=== PATIENT | female | born 1990 | race Caucasian/White ===

== ENCOUNTER 2016-06-08 09:22 | Outpatient (CLI) | payer OTHER ==
[2016-06-08 10:05] LABS: APPEARANCE,URINE SLIGHTLY-CLOUDY; BILIRUBIN,URINE NEGATIVE (NEGATIVE); GLUCOSE, URINE NEGATIVE (NEGATIVE); KETONES,URINE NEGATIVE (NEGATIVE); LEUKOCYTE ESTERASE,URINE SMALL (NEGATIVE); NITRITE,URINE NEGATIVE (NEGATIVE); PROTEIN,URINE NEGATIVE (NEGATIVE); URINE SPECIFIC GRAVITY 1.011; UROBILINOGEN,URINE NEGATIVE mg/dL (<2.0)
[2016-06-08 10:20] LABS: URINE BARBITURATES SCREEN NEGATIVE; URINE METHADONE SCREEN NEGATIVE; URINE OPIATES LOW NEGATIVE; URINE PHENCYCLIDINE SCREEN NEGATIVE
--- NOTE | 2016-06-08 10:46 | Antepartum Discharge Summary ---
Antepartum DC Datetime Report Generated by CPN: 06/08/2016 10:45 DIET/ACTIVITY/RESTRICTIONS Diet: Regular (06/08/2016 10:14:Merari Alex, RN) Activity: Normal Activity (06/08/2016 10:14:Merari Alex, RN) TEACHING/INSTRUCTIONS/REFERRALS Instructions Given To: Patient (06/08/2016 10:14:Merari Alex, RN) Instructions Understood: Patient Verbalized Understanding; Support Person Verbalized Understanding (06/08/2016 10:14:Merari Alex, RN) Referrals: None (06/08/2016 10:14:Merari Johnson RN) Educational Materials- Other: kick counts and early labor signs (06/08/2016 10:14:Merari Johnson RN) DISCHARGE INFORMATION Discharge Date/Time: 06/08/2016 10:14 (06/08/2016 10:14:Merari Johnson RN) Discharged To: Home (06/08/2016 10:14:Merari Johnson RN) Discharge Provider Name: Dr. Pérez (06/08/2016 10:14:Merari Johnson RN) Discharge Method: Ambulatory (06/08/2016 10:14:Merari Johnson RN) Condition: Stable (06/08/2016 10:14:Merari Johnson RN) FOLLOW UP INFORMATION Follow Up With: [facility] (06/08/2016 10:14:Merari Johnson RN) Follow Up On: As Scheduled (06/08/2016 10:14:Merari Johnson RN) Follow Up Phone Number: [facility] - (06/08/2016 10:14:Merari Johnson RN)
--- NOTE | 2016-06-08 10:46 | L&D Flow Sheet ---
LD Flowsheet Datetime Report Generated by CPN: 06/08/2016 10:45 Datetime: 06/08/2016 10:09 Communication Comments: Monitors removed. Patient ambulating off floor in stable condition (Merari Alex, RN) Datetime: 06/08/2016 10:08 Vital Signs NBP Sys/Joanna/Mean (mmHg): 99 (QS system process) : 58 (QS system process) : 71 (QS system process) Pulse: 96 (QS system process) Communication Notification Reason: Uterine Activity (Merari Alex, RN) Communication Notification Reason: Status Update; Status; Labor Status; Membrane Status; Pain (Merari Johnson RN) Communication Comments: Dr. Pérez on unit reviewing strip. Orders received to D/C patient home. (Merari Alex, RN) Datetime: 06/08/2016 10:00 Uterine Activity Monitor Mode: External; Palpation (Merari Alex, RN) Frequency (min): 0 (Merari Alex, RN) Resting Tone (Palpate): Relaxed (Merari Alex, RN) Contraction Comments: patient reports no contractions at this time (Merari Alex, RN) Assessment A Monitor Mode: External US (Merari Alex, RN) FHR Baseline Rate : 145 (Merari Alex, RN) Variability: Moderate 6-25 bpm (Merari Alex, RN) Accelerations: 15X15 (Merari Alex, RN) Decelerations: None (Merari Alex, RN) Datetime: 06/08/2016 09:56 Bedside Blood Glucose: 83 (QS system process) Datetime: 06/08/2016 09:47 Pain Pain Scale: 0 (Merari Alex, RN) Pain Presence: None/Denies (Merari Alex, RN) Pain Type: N/A (Merari Alex, RN) Vaginal Exam Membrane Status: Intact (Merari Alex, RN) Vaginal Bleeding: None (Merari Alex, RN) Maternal Assessment Level of Consciousness: Fully Conscious (Merari Alex, RN) DTR's/Clonus: DTRs 1+; No Clonus (Merari Alex, RN) Headache: Denies (Merari Alex, RN) Breath Sounds, Left: Clear and Equal (Merari Alex, RN) Breath Sounds, Right: Clear and Equal (Merari Alex, RN) Nausea/Vomiting: Denies (Merari Alxe, RN) RUQ Epigastric Pain: Denies (Merari Alex, RN) Datetime: 06/08/2016 09:44 Vital Signs NBP Sys/Joanna/Mean (mmHg): 95 (QS system process) : 59 (QS system process) : 70 (QS system process) Pulse: 94 (QS system process)
--- NOTE | 2016-06-08 10:46 | L&D General Admission ---
General Admit Datetime Report Generated by CPN: 06/08/2016 10:45 INFORMATION Patient Age: 25 (08/28/2015 08:42:QS system process) EDC: 06/20/2016 00:00 (06/08/2016 09:27:Merari Johnson RN) : 4 (06/08/2016 09:27:Merari Johnson RN) Para: 2 (06/08/2016 09:27:Merari Johnson RN) Term: 2 (06/08/2016 09:27:Merari Johnson RN) : 0 (06/08/2016 09:27:Merari Johnson RN) Spontaneous Abortions: 1 (06/08/2016 09:27:Merari Johnson RN) Induced Abortions: 0 (06/08/2016 09:27:Merari Johnson RN) Livin (06/08/2016 09:27:Merari Johnson RN) Cesareans: 0 (06/08/2016 09:27:Merari Johnson RN) VBACs: 0 (06/08/2016 09:27:Merari Johnson RN) Ectopic: 0 (06/08/2016 09:27:Merari Johnson RN) Multiple Births: 0 (06/08/2016 09:27:Merari Johnson RN) Baby, Number in Womb: 1 (06/08/2016 09:27:Merari Johnson RN) CARE [facility] (06/08/2016 09:27:Merari Johnson RN) Adequate Care: Yes (06/08/2016 09:27:Merari Johnson RN) ALLERGIES Medication Allergy: No (06/08/2016 09:27:Merari Johnson RN) Medication Allergies: No Known Allergies (06/18/2011) (08/28/2015 08:42:QS system process) Latex Allergy: No Latex Allergies (06/08/2016 09:27:Merari Johnson RN) Food Allergies: none (06/08/2016 09:27:Merari Johnson RN) Environmental Allergies: none (06/08/2016 09:27:Merari Johnson RN) COMMUNICATION Primary Language: Burkinan (06/08/2016 09:27:Merari Johnson RN) Medical Tx Preferred Language: Burkinan (06/08/2016 09:27:Merari Johnson RN) Communication Barrier(s): None (06/08/2016 09:27:Merari Johnson RN) DEMOGRAPHICS Address: [address] [place] [id number] (06/08/2016 09:23:QS system process) Address: [address] [place] [id number] (08/29/2015 07:57:QS system process) Address: [address] [place] [address] (08/28/2015 08:42:QS system process) Zipcode: [address] (06/08/2016 09:23:QS system process) Zipcode: [phone] (08/29/2015 07:57:QS system process) Zipcode: [address] (08/28/2015 08:42:QS system process) Home (08/29/2015 07:57:QS system process) Home (08/28/2015 08:42:QS system process) Work (06/08/2016 09:23:QS system process) Work (08/29/2015 07:57:QS system process) Work (08/28/2015 08:42:QS system process) SSN: [id number] (08/28/2015 08:42:QS system process) Next of Kin Name: ROGER BARNETT (08/29/2015 07:57:QS system process) Next of Kin Name: BRYANNA ALLEN (08/28/2015 08:42:QS system process) Next of Kin (08/29/2015 07:57:QS system process) Next of Kin (08/28/2015 08:42:QS system process) Next of Kin Relationship: OR (08/28/2015 08:42:QS system process) Date of : 1990 (08/28/2015 08:42:QS system process) Marital Status: Single (08/28/2015 08:42:QS system process) Sex: Female (08/28/2015 08:42:QS system process) Race: (08/28/2015 08:42:QS system process) Ethnicity: Non- or (08/28/2015 08:42:QS system process) Hinduism: Other (08/28/2015 08:42:QS system process) DRUG AND ALCOHOL USE Alcohol: No (06/08/2016 09:27:Merari Alex, RN) Cigarettes: Never Smoker. [id number] (06/08/2016 09:27:Merari Johnson RN) Marijuana: No (06/08/2016 09:27:Merari Johnson RN) Cocaine: No (06/08/2016 09:27:Merari Jhonson RN) Other Illicit Drugs: No (06/08/2016 09:27:Merari Johnson RN) VACCINE HISTORY Tetanus Vaccine: Yes (06/08/2016 09:27:Merari Johnson RN) Tdap Vaccine: Yes (06/08/2016 09:27:Merari Johnson RN) Hog Killer: [facility] (06/08/2016 09:27:Merari Johnson RN) Feeding Preference: Breast (06/08/2016 09:27:Merari Johnson RN) Benefit of Breast Feed Discussed: Yes (06/08/2016 09:27:Merari Johnson RN) Circumcision: N/A (06/08/2016 09:27:Merari Johnson RN) Tubal Ligation: No (06/08/2016 09:27:Merari Johnson RN) Tubal Authorization Signed: N/A (06/08/2016 09:27:Merari Johnson RN) Consent: N/A (06/08/2016 09:27:Merari Johnson RN) Consent Signed: N/A (06/08/2016 09:27:Merari Johnson RN) Pain Management Plans: Epidural (06/08/2016 09:27:Merari Johnson RN) Support Person: Rony Chance (06/08/2016 09:27:Merari Johnson RN) Support Person Relationship: (06/08/2016 09:27:Merari Johnson RN) Cultural/Spritual Practice: [place] (06/08/2016 09:27:Merari Johnson RN) Spir/Cult Dietary Needs: No (06/08/2016 09:27:Merari Johnson RN) LIVING SITUATION/DISCHARGE PLAN Living Arrangements: House (06/08/2016 09:27:Merari Johnson RN) Adequate Access to:: Electric; Heat; Refrigeration; Plumbing/Running water; Phone; Transportation (06/08/2016 09:27:Merari Johnson RN) WIC Program: [place] (06/08/2016 09:27:Merari Johnson RN) Discharge Youth Leader Person: Rony Chance (06/08/2016 09:27:Merari Johnson RN) Person to Help after Discharge: Rony Chance (06/08/2016 09:27:Merari Johnson RN) Currently Using Commun Resources: [place] (06/08/2016 09:27:Merari Johnson RN) Car Seat for Discharge: Yes (06/08/2016 09:27:Merari Johnson RN) Adoption Requested: No (06/08/2016 09:27:Merari Johnson RN) Pt Contact w/ Post : N/A (06/08/2016 09:27:Merari Johnson RN) LABS Blood Type: A Positive (06/08/2016 09:27:Merari Johnson RN) Hemoglobin: 14.2 (08/29/2015 08:07:QS system process) Hematocrit: 42.7 (08/29/2015 08:07:QS system process) MCV: 87 (08/29/2015 08:07:QS system process) Group Beta Strep: negative (06/08/2016 09:27:Merari Johnson RN) Gonorrhea: Negative (06/08/2016 09:27:Merari Johnson RN) Chlamydia: Negative (Annotations: Data stored by CPN on behalf of user) (06/08/2016 09:27:Merari Johnson RN) RPR/VDRL: Nonreactive (06/08/2016 09:27:Merari Johnson RN) Hepatitis B: Negative (06/08/2016 09:27:Merari Johnson RN) Rubella: Immune (06/08/2016 09:27:Merari Johnson RN)
--- NOTE | 2016-06-08 10:46 | L&D Current Admission ---
Current Admit Datetime Report Generated by CPN: 06/08/2016 10:45 ADMISSION INFORMATION Chief Complaint: Decreased Movement (06/08/2016 09:47:Merari Johnson, DORYS)
--- NOTE | 2016-06-08 10:46 | L&D Admission Assessment ---
LD ADM ASMT Datetime Report Generated by CPN: 06/08/2016 10:45 PATIENT ASSESSMENT Assessment Type: Triage (06/08/2016 09:47:Merari Alex, RN) PAIN Pain Scale: 0 (06/08/2016 09:47:Merari Alex, RN) Pain Presence: None/Denies (06/08/2016 09:47:Merari Alex, RN) Pain Type: N/A (06/08/2016 09:47:Merari Alex, RN) CONTRACTIONS Frequency (min): 0 (06/08/2016 10:00:Merari Alex, RN) Resting Tone Esto: Relaxed (06/08/2016 10:00:Merari Alex, RN) Contraction Comments: patient reports no contractions at this time (06/08/2016 10:00:Merari Alex, RN) VAGINAL EXAM Membranes Status: Intact (06/08/2016 09:47:Merari Alex, RN) NEURO Level of Consciousness: Fully Conscious (06/08/2016 09:47:Merari Alex, RN) DTR's/Clonus: DTRs 1+; No Clonus (06/08/2016 09:47:Merari Johnson RN) Headache: Denies (06/08/2016 09:47:Merari Johnson RN) Dizziness: Yes (Annotations: a few dizzy spells. Went away after a few minutes) (06/08/2016 09:47:Merari Johnson RN) Blurred Vision: No (06/08/2016 09:47:Merari Johnson RN) Extremity Numbness/Tingling : None (06/08/2016 09:47:Merari Johnson RN) Extremity Movement: Full Range of Motion (06/08/2016 09:47:Merari Johnson RN) CARDIOVASCULAR Heart Rhythm: Regular (06/08/2016 09:47:Merari Johnson RN) Nailbeds: [place] (06/08/2016 09:47:Merari Johnson RN) Capillary Refill: Less than 3 Seconds (06/08/2016 09:47:Merari Johnson RN) Lower Extremities Edema: None (06/08/2016 09:47:Merari Johnson RN) Lower Extremities Edema Degree: None (06/08/2016 09:47:Merari Johnson RN) Upper Extremities Edema: None (06/08/2016 09:47:Merari Johnson RN) Upper Extremities Edema Degree: None (06/08/2016 09:47:Merari Johnson RN) Facial Edema: None (06/08/2016 09:47:Merari Johnson RN) Pina's Sign Left Leg: Negative (06/08/2016 09:47:Merari Johnson RN) Pina's Sign Right Leg: Negative (06/08/2016 09:47:Merari Johnson RN) DVT RISK ASSESSMENT DVT Risk Age: Age less than 41 years (06/08/2016 09:47:Merari Johnson RN) DVT Risk BMI: BMI<31 (06/08/2016 09:47:Merari Johnson RN) DVT Risk Surgery: Gall bladder removed 2015 (06/08/2016 09:47:Merari Johnson RN) DVT Risk Other: Women Only- or (<1 month) (06/08/2016 09:47:Merari Johnson RN) RESPIRATORY Respiratory Effort: Unlabored; Regular Rhythm; Equal Expansion (06/08/2016 09:47:Merari Johnson RN) Breath Sounds, Left: Clear and Equal (06/08/2016 09:47:Merari Johnson RN) Breath Sounds, Right: Clear and Equal (06/08/2016 09:47:Merari Johnson RN) Cough Productivity: None (06/08/2016 09:47:Merari Johnson RN) GASTROINTESTINAL Nausea/Vomiting: Denies (06/08/2016 09:47:Merari Johnson RN) Bowel Sounds: Normoactive (06/08/2016 09:47:Merari Johnson RN) RUQ Epigastric Pain: Denies (06/08/2016 09:47:Merari Johnson RN) Bowel Patterns: Diarrhea (06/08/2016 09:47:Merari Johnson RN) Hemorrhoids: None (06/08/2016 09:47:Merari Johnson RN) Diet Type: Regular diet (06/08/2016 09:47:Merari Johnson RN) Last Meal: 06/08/2016 07:00 (06/08/2016 09:47:Merari Johnson RN) GENITOURINARY Bladder: Nondistended (06/08/2016 09:47:Merari Johnson RN) Frequency of Urination: No (06/08/2016 09:47:Merari Johnson RN) Urination Burning: No (06/08/2016 09:47:Merari Johnson RN) CVA Tenderness: No (06/08/2016 09:47:Merari Johnson RN) Vaginal Bleeding: None (06/08/2016 09:47:Merari Johnson RN) Vaginal Discharge Amount: Small (06/08/2016 09:47:Merari Johnson RN) Vaginal Discharge Color: White (06/08/2016 09:47:Merari Johnson RN) Vaginal Discharge Odor: Non-Odorous (06/08/2016 09:47:Merari Johnson RN) Vaginal Discharge Character: Thin (06/08/2016 09:47:Merari Johnson RN) INTEGUMENTARY Skin Color: Normal for Race (06/08/2016 09:47:Merari Johnson RN) Skin Temperature: Warm (06/08/2016 09:47:Merari Johnson RN) Skin Moisture: Dry (06/08/2016 09:47:Merari Johnson RN) JOY SKIN ASSESSMENT Joy Scale Sensory Perception: No Impairment- Responds to verbal commands. Has no sensory deficit which would limit ability to feel or voice pain or discomfort (06/08/2016 09:47:Merari Johnson RN) Joy Scale Moisture: Rarely Moist- Skin is usually dry. Linen only requires changing at routine intervals (06/08/2016 09:47:Merari Johnson RN) Joy Scale Activity: Walks Frequently- Walks outside the room at least twice a day and inside room at least every 2 hours during the day. (06/08/2016 09:47:Merari Johnson RN) Joy Scale Mobility: No Limitations- Makes major and frequent changes in position without assistance (06/08/2016 09:47:Merari Johnson RN) Joy Scale Nutrition: Adequate- Eats over half of most meals. Eats a total of 4 servings of protein (meat, dairy products) each day. Occasionally will refuse a meal but will usually take a supplement if offered OR is on a tube feeding or TPN regimen which probably meets most of nutritional needs (06/08/2016 09:47:Merari Johnson RN) Joy Scale Friction and Shear: No Apparent Problem- Moves in bed and in chair independently and has sufficient muscle strength to lift up completely during move. Maintains good position in bed or chair at all times (06/08/2016 09:47:Merari Johnson RN) Joy Scale Total: 22 (06/08/2016 09:47:QS system process) Joy Scale Risk: No Risk of Pressure Ulcer Noted at this Time (06/08/2016 09:47:QS system process) SUPPORT Family Support: Significant Other supportive, at bedside frequently (06/08/2016 09:47:Merari Johnson RN) Emotional State: Calm/Relaxed (06/08/2016 09:47:Merari Johnson RN) SAFETY Call [place] Within Reach: Yes (06/08/2016 09:47:Merari Johnson RN) Side Rails Up: Yes (06/08/2016 09:47:Merari Johnson RN) Bed Wheels Locked: Yes (06/08/2016 09:47:Merari Johnson RN) Arm Bands Present: Yes (06/08/2016 09:47:Merari Johnson RN) Isolation: [place] (06/08/2016 09:47:Merari Johnson RN) FALL SCREEN Fall Risk History of Falling: (0) No (06/08/2016 09:47:Merari Johnson RN) Fall Risk Secondary Diagnosis: (0) No (06/08/2016 09:47:Merari Johnson RN) Fall Risk Ambulatory Aid: (0) None/Bedrest/Wheelchair/Nurse Assist (06/08/2016 09:47:Merari Johnson RN) Fall Risk IV Therapy: (0) No (06/08/2016 09:47:Merari Johnson RN) Fall Risk Gait: (0) Normal/Bedrest/Immobile (06/08/2016 09:47:Merari Johnson RN) Fall Risk Mental Status: (0) Oriented to Own Ability (06/08/2016 09:47:Merari Johnson RN) Fall Risk Score: 0 (06/08/2016 09:47:QS system process) Fall Risk Score Definition: No Risk: No action required (06/08/2016 09:47:QS system process) RECENT TRAVEL/INFECTIOUS DISEASE Recent Exp Communicable Disease: No (06/08/2016 09:47:Merari Johnson RN) Cough or Fever: No (06/08/2016 09:47:Merari Johnson RN) Foreign Travel Past 10 Days: No (06/08/2016 09:47:Merari Johnson RN) Open Wounds or Sores: No (06/08/2016 09:47:Merari Johnson RN) Prior Antibiotic Resistance Tx: No (06/08/2016 09:47:Merari Johnson RN) Cultures Obtained: Not Applicable (06/08/2016 09:47:Merari Johnson RN) Isolation Initiated: No (06/08/2016 09:47:Merari Johnson RN) Pt/Family Education: Not Applicable (06/08/2016 09:47:Merari Johnson RN) BABY A FHR Baseline Rate (bpm) Baby A: 145 (06/08/2016 10:00:Merari Johnson RN) Variability Baby A: Moderate 6-25 bpm (06/08/2016 10:00:Merari Johnson RN) Accelerations Baby A: 15X15 (06/08/2016 10:00:Merari Johnson RN) Decelerations Baby A: None (06/08/2016 10:00:Merari Johnson RN)
--- NOTE | 2016-06-08 10:46 | L&D Discharge Summary ---
OB Discharge Summary Datetime Report Generated by CPN: 06/08/2016 10:45 DISCHARGE DIAGNOSIS Diagnosis/Symptoms: Decreased Movement Number of Babies in Womb: 1 Parity: 2 DIET/ACTIVITY/RESTRICTIONS Diet: Regular Activity: Normal Activity TEACHING/INSTRUCTIONS/REFERRALS Instructions Given To: Patient Instructions Understood: Patient Verbalized Understanding; Support Person Verbalized Understanding Referrals: None Educational Materials- Other: kick counts and early labor signs DISCHARGE INFORMATION Discharge Date/Time: 06/08/2016 10:14 Discharged To: Home Discharge Provider Name: Dr. Beto Discharge Method: Ambulatory Condition: Stable FOLLOW UP INFORMATION Follow Up With: [facility] Follow Up On: As Scheduled Follow Up Phone Number: [facility] -
== END 2016-06-08 10:10 | disposition home or self-care (01) ==
LOC: LC 09:22
PROVIDERS: ATTEND Obstetrics & Gynecology
PROC: 4A1HXCZ Monitoring of Products of Conception, Cardiac Rate, External Approach (ICD-10-PCS; principal; 2016-06-08)
DX: O36.8130 Decreased fetal movements, third trimester, not applicable or unspecified (principal); Z3A.38 38 weeks gestation of pregnancy
CPT/HCPCS: 59025; 80307; 81005; 82962

== ENCOUNTER 2016-06-20 18:00 | Inpatient (IN) | payer OTHER ==
[2016-06-20] MEDS ORDERED: RINGERS SOLUTION,LACTATED 300 ML IV ONE (18:19)
[2016-06-20] MEDS ORDERED: DINOPROSTONE 10 MG VAGINAL INSERT.SR PV PRN (18:19)
[2016-06-20 18:49] LABS: ABSOLUTE BASOPHILS # (AUTO) 0.1 10^3/uL (0.0-0.2); ABSOLUTE EOSINOPHILS # (AUTO) 0.1 10^3/uL (0.0-0.6); ABSOLUTE LYMPHOCYTES (AUTO) 2.5 10^3/uL (0.5-4.7); ABSOLUTE MONOCYTES (AUTO) 0.9 10^3/uL (0.1-1.4); ABSOLUTE NEUT (AUTO) 10.3 10^3/uL (1.7-8.2); BASOPHILS % (AUTO) 0.4 % (0-2); EOSINOPHILS % (AUTO) 0.6 % (0-6); HEMATOCRIT 35.4 % (36.0-47.0); HEMOGLOBIN 12.2 g/dL (12.0-15.5); HGB HCT DIFFERENCE 1.2; LYMPHOCYTES % (AUTO) 17.9 % (13-45); MEAN CORPUSCULAR HEMOGLOBIN 29.2 pg (27.0-33.4); MEAN CORPUSCULAR HGB CONC 34.3 g/dL (32.0-36.0); MEAN CORPUSCULAR VOLUME 85 fl (80-97); MONOCYTES % (AUTO) 6.2 % (3-13); RED BLOOD COUNT 4.16 10^6/uL (3.72-5.28); RED CELL DISTRIBUTION WIDTH 13.9 % (11.5-14.0); SEGMENTED NEUTROPHILS % (AUTO) 74.9 % (42-78); WHITE BLOOD COUNT 13.7 10^3/uL (4.0-10.5)
[2016-06-20 19:10] LABS: APPEARANCE,URINE SLIGHTLY-CLOUDY; BILIRUBIN,URINE NEGATIVE (NEGATIVE); GLUCOSE, URINE NEGATIVE (NEGATIVE); KETONES,URINE NEGATIVE (NEGATIVE); LEUKOCYTE ESTERASE,URINE SMALL (NEGATIVE); NITRITE,URINE NEGATIVE (NEGATIVE); PROTEIN,URINE NEGATIVE (NEGATIVE); URINE SPECIFIC GRAVITY 1.011; UROBILINOGEN,URINE NEGATIVE mg/dL (<2.0)
[2016-06-20 19:26] LABS: URINE BARBITURATES SCREEN NEGATIVE; URINE METHADONE SCREEN NEGATIVE; URINE OPIATES LOW NEGATIVE; URINE PHENCYCLIDINE SCREEN NEGATIVE
--- NOTE | 2016-06-20 20:00 | L&D Flow Sheet ---
LD Flowsheet Datetime Report Generated by CPN: 06/20/2016 20:00 Datetime: 06/20/2016 19:20 Communication Comments: Bedside report from D [employer] [facility], care assumed (Xi Dustin, RN) Datetime: 06/20/2016 19:00 Uterine Activity Monitor Mode: External; Palpation (Tani Silver, RN) Frequency (min): irregular (Tani Silver, RN) Quality: Mild (Tani Silver, RN) Duration Criteria: Less than Two 120 Second Contractions (Tani Silver, RN) Pattern: Normal: <= 5 Contractions in 10 Minutes (Tani Silver, RN) Resting Tone (Palpate): Relaxed (Tani Silver, RN) Assessment A Monitor Mode: External US (Tani Silver, RN) FHR Baseline Rate : 135 (Tani Silver, RN) Variability: Moderate 6-25 bpm (Tani Silver, RN) Accelerations: 15X15 (Tani Silver, RN) Decelerations: None (Tani Silver, RN) Communication Communication: RN at Bedside; RN Reviewed Strip (Tani Silver, RN) Datetime: 06/20/2016 18:27 Vital Signs NBP Sys/Joanna/Mean (mmHg): 123 (QS system process) : 64 (QS system process) : 86 (QS system process) Pulse: 85 (QS system process)
[2016-06-20] MEDS: RINGERS SOLUTION,LACTATED 1,000 ML IV PRN ×2 (20:32→20:33)
[2016-06-21] MEDS ORDERED: DINOPROSTONE 10 MG VAGINAL INSERT.SR ONE (02:11)
--- NOTE | 2016-06-21 08:00 | L&D Flow Sheet ---
LD Flowsheet Datetime Report Generated by CPN: 06/21/2016 08:00 Datetime: 06/21/2016 07:52 Level of Consciousness: Fully Conscious (Aminah Pérez, RN) DTR's/Clonus: DTRs 2+; No Clonus (Aminah Pérez, RN) Headache: Denies (Aminah Pérez, RN) Breath Sounds, Left: Clear and Equal (Aminah Pérez, RN) Breath Sounds, Right: Clear and Equal (Aminah Pérez, RN) Nausea/Vomiting: Denies (Aminah Pérez, RN) RUQ Epigastric Pain: Denies (Aminah Pérez, RN) Datetime: 06/21/2016 07:30 Monitor Mode: External; Palpation (Aminah Beto, RN) Frequency (min): 3-6 (Aminah Beto, RN) Quality: Mild (Aminah Beto, RN) Duration (sec): 70-100 (Aminah Beto, RN) Duration Criteria: Less than Two 120 Second Contractions (Aminah Beto, RN) Pattern: Normal: <= 5 Contractions in 10 Minutes (Aminah Beto, RN) Resting Tone (Palpate): Relaxed (Aminah Beto, RN) Monitor Mode: External US (Aminah Beto, RN) FHR Baseline Rate : 135 (Aminah Beto, RN) FHR Baseline Changes: No Baseline Change (Aminah Beto, RN) Variability: Moderate 6-25 bpm (Aminah Beto, RN) Accelerations: 15X15 (Aminah Beto, RN) Decelerations: None (Aminah Beto, RN) Datetime: 06/21/2016 07:00 Monitor Mode: External (Claribel Juan F, RN) Frequency (min): occasional (Claribel Juan F, RN) Quality: Mild (Claribel Juan F, RN) Duration (sec): 90 (Claribel Juan F, RN) Pattern: Normal: <= 5 Contractions in 10 Minutes (Claribel Juan F, RN) Resting Tone (Palpate): Relaxed (Claribel Juan F, RN) Monitor Mode: External US (Claribel Juan F, RN) FHR Baseline Rate : 135 (Claribel Juan F, RN) FHR Baseline Changes: No Baseline Change (Claribel Juan F, RN) Variability: Moderate 6-25 bpm (Claribel Juan F, RN) Accelerations: 15X15 (Claribel Juan F, RN) Decelerations: None (Claribel Juan F, RN) Datetime: 06/21/2016 06:59 I/O Interventions: Up to BR (Claribel Juan F, RN) Datetime: 06/21/2016 06:30 Monitor Mode: External (Claribel Juan F, RN) Frequency (min): occasional (Claribel Juan F, RN) Quality: Mild (Claribel Juan F, RN) Duration (sec): 100 (Claribel Juan F, RN) Resting Tone (Palpate): Relaxed (Claribel Juan F, RN) Monitor Mode: External US (Claribel Juan F, RN) FHR Baseline Rate : 135 (Claribel Juan F, RN) FHR Baseline Changes: No Baseline Change (Claribel Juan F, RN) Variability: Moderate 6-25 bpm (Claribel Juan F, RN) Accelerations: 15X15 (Claribel Juan F, RN) Decelerations: None (Claribel Juan F, RN) Datetime: 06/21/2016 06:00 Monitor Mode: External (Xi Dustin, RN) Frequency (min): 3-6 (Xi Dustin, RN) Quality: Mild (Xi Dustin, RN) Duration (sec): 70-120 (Xi Dustin, RN) Resting Tone (Palpate): Relaxed (Xi Dustin, RN) Monitor Mode: External US (Xi Dustin, RN) FHR Baseline Rate : 140 (Xi Dustin, RN) Variability: Moderate 6-25 bpm (Xi Dustin, RN) Accelerations: 15X15 (Xi Dustin, RN) Decelerations: None (Xi Dustin, RN) Datetime: 06/21/2016 05:29 Monitor Mode: External (Claribel Juan F, RN) Frequency (min): X 1 (Claribel Juan F, RN) Quality: Mild (Claribel Juan F, RN) Duration (sec): 50 (Claribel Juan F, RN) Pattern: Normal: <= 5 Contractions in 10 Minutes (Claribel Juan F, RN) Resting Tone (Palpate): Relaxed (Claribel Juan F, RN) Monitor Mode: External US (Claribel Juan F, RN) FHR Baseline Rate : 140 (Clarible Juan F, RN) FHR Baseline Changes: No Baseline Change (Claribel Juan F, RN) Variability: Moderate 6-25 bpm (Claribel Juan F, RN) Accelerations: 15X15 (Claribel Juan F, RN) Decelerations: None (Claribel Juan F, RN) Datetime: 06/21/2016 05:00 Monitor Mode: External (Claribel Juan F, RN) Frequency (min): occasional (Claribel Juan F, RN) Pattern: Normal: <= 5 Contractions in 10 Minutes (Claribel Juan F, RN) Resting Tone (Palpate): Relaxed (Claribel Juan F, RN) Contraction Comments: irritability noted (Claribel Juan F, RN) Monitor Mode: External US (Claribel Juan F, RN) FHR Baseline Rate : 125 (Claribel Juan F, RN) FHR Baseline Changes: No Baseline Change (Claribel Juan F, RN) Variability: Moderate 6-25 bpm (Claribel Juan F, RN) Accelerations: 15X15 (Claribel Juan F, RN) Decelerations: None (Claribel Juan F, RN) Datetime: 06/21/2016 04:29 Monitor Mode: External (Claribel Juan F, RN) Frequency (min): occasional (Claribel Juan F, RN) Quality: Mild (Claribel Juan F, RN) Resting Tone (Palpate): Relaxed (Claribel Juan F, RN) Monitor Mode: External US (Claribel Juan F, RN) FHR Baseline Rate : 125 (Claribel Juan F, RN) FHR Baseline Changes: No Baseline Change (Claribel Juan F, RN) Variability: Moderate 6-25 bpm (Claribel Juan F, RN) Accelerations: 15X15 (Claribel Juan F, RN) Decelerations: None (Claribel Juan F, RN) Datetime: 06/21/2016 04:22 NBP Sys/Joanna/Mean (mmHg): 89 (QS system process) : 50 (QS system process) : 64 (QS system process) Pulse: 66 (QS system process) LaborFlag: Antepartum (QS system process) Datetime: 06/21/2016 04:00 Monitor Mode: External (Claribel Juan F, RN) Frequency (min): irregular (Claribel Juan F, RN) Quality: Mild (Claribel Juan F, RN) Duration (sec): 50-90 (Claribel Juan F, RN) Resting Tone (Palpate): Relaxed (Claribel Juan F, RN) Monitor Mode: External US (Claribel Juan F, RN) FHR Baseline Rate : 125 (Claribel Juan F, RN) FHR Baseline Changes: No Baseline Change (Claribel Juan F, RN) Variability: Moderate 6-25 bpm (Claribel Juan F, RN) Accelerations: 15X15 (Claribel Juan F, RN) Decelerations: None (Claribel Juan F, RN) Datetime: 06/21/2016 03:52 NBP Sys/Joanna/Mean (mmHg): 117 (QS system process) : 71 (QS system process) : 88 (QS system process) Pulse: 76 (QS system process) LaborFlag: Antepartum (QS system process) Datetime: 06/21/2016 03:30 Monitor Mode: External (Claribel Juan F, RN) Frequency (min): X1 (Claribel Juan F, RN) Quality: Mild (Claribel Juan F, RN) Duration (sec): 90 (Claribel Juan F, RN) Resting Tone (Palpate): Relaxed (Claribel Juan F, RN) Monitor Mode: External US (Claribel Juan F, RN) FHR Baseline Rate : 125 (Claribel Juan F, RN) FHR Baseline Changes: No Baseline Change (Claribel Juan F, RN) Variability: Moderate 6-25 bpm (Claribel Juan F, RN) Accelerations: 15X15 (Claribel Juan F, RN) Decelerations: None (Claribel Juan F, RN) Datetime: 06/21/2016 03:22 NBP Sys/Joanna/Mean (mmHg): 123 (QS system process) : 59 (QS system process) : 85 (QS system process) Pulse: 81 (QS system process) LaborFlag: Antepartum (QS system process) Datetime: 06/21/2016 03:00 Monitor Mode: External (Xi Dustin, RN) Frequency (min): x1 (Xi Dustin, RN) Quality: Mild (Xi Dustin, RN) Duration (sec): 90 (Xi Dustin, RN) Resting Tone (Palpate): Relaxed (Xi Dustin, RN) Monitor Mode: External US (Xi Dustin, RN) FHR Baseline Rate : 125 (Xi Dustin, RN) Variability: Moderate 6-25 bpm (Xi Dustin, RN) Accelerations: 15X15 (Xi Dustin, RN) Decelerations: None (Xi Dustin, RN) Datetime: 06/21/2016 02:53 NBP Sys/Joanna/Mean (mmHg): 122 (QS system process) : 60 (QS system process) : 85 (QS system process) Pulse: 81 (QS system process) LaborFlag: Antepartum (QS system process) Datetime: 06/21/2016 02:30 Monitor Mode: External (Ix Dustin, RN) Frequency (min): x2 (Xi Dustin, RN) Quality: Mild (Xi Dustin, RN) Duration (sec): 70-90 (Xi Dustin, RN) Resting Tone (Palpate): Relaxed (Xi Dustin, RN) Monitor Mode: External US (Xi Dustin, RN) FHR Baseline Rate : 130 (Xi Dustin, RN) Variability: Moderate 6-25 bpm (Xi Dustin, RN) Accelerations: 15X15 (Xi Dustin, RN) Decelerations: None (Xi Dustin, RN) Datetime: 06/21/2016 02:21 NBP Sys/Joanna/Mean (mmHg): 120 (QS system process) : 73 (QS system process) : 89 (QS system process) Pulse: 81 (QS system process) LaborFlag: Antepartum (QS system process) Datetime: 06/21/2016 02:17 Patient Care Comments: IVF reconnected and started at 125 ml/ hour (Claribel Rogel, RN) Datetime: 06/21/2016 02:15 Dilatation (cm): 1.0 (Claribel Rogel RN) Effacement (%): 0 (Claribel Rogel RN) Station: -2 (Claribel Rogel RN) Exam by: RON Pringle (Claribel Rogel RN) Vaginal Bleeding: None (Claribel Rogel RN) Cervix, Consistency: Soft (Claribel Rogel RN) Cervix, Position: Midposition (Claribel Rogel RN) Cervical Ripening Agents: Cervidil (Claribel Rogel RN) Datetime: 06/21/2016 02:10 I/O Interventions: Up to BR (Claribel Rogel, DORYS) Datetime: 06/21/2016 01:59 Frequency (min): 0 (Claribel Juan F, RN) Monitor Mode: External US (Claribel Juan F, RN) FHR Baseline Rate : 130 (Claribel Juan F, RN) FHR Baseline Changes: No Baseline Change (Claribel Juan F, RN) Variability: Moderate 6-25 bpm (Claribel Juan F, RN) Accelerations: 15X15 (Claribel Juan F, RN) Decelerations: None (Claribel Juan F, RN) Datetime: 06/21/2016 01:40 Stage of : Antepartum (Claribel Rogel, RN) Patient Care Comments: Monitors reapplied in anticipation of inserting cervidil. (Claribel Juan F, RN) Datetime: 06/20/2016 21:11 Monitor Mode: External (Xi Dustin, RN) Frequency (min): none (Xi Dustin, RN) Resting Tone (Palpate): Relaxed (Xi Dustin, RN) Monitor Mode: External US (Xi Dustin, RN) FHR Baseline Rate : 125 (Xi Dustin, RN) Variability: Moderate 6-25 bpm (Xi Dustin, RN) Accelerations: 15X15 (Xi Dustin, RN) Decelerations: None (Xi Dustin, RN) Comments: monitors removed, IV saline locked per orders from Dr Flores while pt awaits cervidil administration. Pt given instructions to ambulate 2nd floor if she wishes (Xi Dustin, RN) Datetime: 06/20/2016 21:00 Monitor Mode: External (Xi Dustin, RN) Frequency (min): 4-10 (Xi Dustin, RN) Quality: Mild (Xi Dustin, RN) Duration (sec): 60-120 (Xi Dustin, RN) Resting Tone (Palpate): Relaxed (Xi Dustin, RN) Monitor Mode: External US (Xi Dustin, RN) FHR Baseline Rate : 130 (Xi Dustin, RN) Variability: Moderate 6-25 bpm (Xi Dustin, RN) Accelerations: 15X15 (Xi Dustin, RN) Decelerations: None (Xi Dustin, RN) Datetime: 06/20/2016 20:30 Monitor Mode: External; Palpation (Xi Dustin, RN) Frequency (min): Irregular with irritability (Xi Dustin, RN) Quality: Mild (Xi Dustin, RN) Duration (sec): 60-90 (Xi Dustin, RN) Resting Tone (Palpate): Relaxed (Xi Dustin, RN) Monitor Mode: External US (Xi Dustin, RN) FHR Baseline Rate : 135 (Xi Dustin, RN) Variability: Moderate 6-25 bpm (Xi Dustin, RN) Accelerations: 15X15 (Xi Dustin, RN) Decelerations: None (Xi Dustin, RN) Datetime: 06/20/2016 20:15 Level of Consciousness: Fully Conscious (Xi Dustin, RN) DTR's/Clonus: DTRs 2+; No Clonus (Xi Dustin, RN) Headache: Denies (Xi Dustin, RN) Breath Sounds, Left: Clear and Equal (Xi Dustin, RN) Breath Sounds, Right: Clear and Equal (Xi Dustin, RN) Nausea/Vomiting: Denies (Xi Dustin, RN) RUQ Epigastric Pain: Denies (Xi Dustin, RN) Datetime: 06/20/2016 20:00 Respirations: 18 (Vanessa Vogel) Monitor Mode: External; Palpation (Vanessa Vogel) Monitor Interventions for UA: [place] Adjusted (Vanessa Vogel) Frequency (min): occasional (Vanessa Vogel) Quality: Mild (Vanessa Vogel) Duration (sec): 80-110 (Vanessa Vogel) Resting Tone (Palpate): Relaxed (Vanessa Vogel) Monitor Mode: External US (Vanessa Vogel) Monitor Interventions for FHR: Ultrasound Adjusted (Vanessa Vogel) FHR Baseline Rate : 130 (Vanessa Vogel) Variability: Moderate 6-25 bpm (Vanessa Vogel) Accelerations: 15X15 (Vanessa Vogel) Decelerations: None (Vanessa Vogel)
--- NOTE | 2016-06-21 08:11 | L&D Progress Notes ---
PROGRESS NOTES Datetime Report Generated by CPN: 06/21/2016 08:11 PROGRESS NOTE Impression: Reassuring Heart Rate; Rupture of Membranes Procedures: Artificial ROM; Sterile Vag Exam Plan: Induction Informed Consent Obtained: Vaginal Delivery Vital Signs : Reviewed; Within Normal Limits Comment: cervidil in the vagina, removed 70/-1 AROM, clear may want epidural prn VAGINAL EXAM Dilatation: 3 Effacement: 70 Station: -1 Contractions: 2-5 MEMBRANES Membranes: Ruptured Amniotic Fluid Color: Clear FETUS A FHR - Baseline: 125 Monitoring: External US Variability: Moderate 6-25bpm Accelerations: 15X15 Decelerations: None FHR Category: Category I Estimated Weight (gm): 3800 SIGNATURE SIGNATURE: [id number] Assignment: Beena Hunt MD Signature: with User ID: [email or web address] : with User ID: Sarahake
[2016-06-21] MEDS ORDERED: OXYTOCIN/NORMAL SALINE 20 UNIT/1,000 ML RTUINJ ONE (08:22)
[2016-06-21] MEDS ORDERED: OXYTOCIN/NORMAL SALINE 1,000 ML IV PRN ×3 (08:37→13:37)
[2016-06-21] MEDS ORDERED: PHENYLEPHRINE HCL INJ/PF 10 MG/1 ML SDV ONE (10:29)
[2016-06-21] MEDS ORDERED: EPHEDRINE SULFATE INJ 50 MG/1 ML AMPULE ONE (10:29)
[2016-06-21] MEDS ORDERED: FENTANYL CITRATE INJ/PF 100 MCG/2 ML AMPUL ONE (10:29)
[2016-06-21] MEDS ORDERED: BUPIVACAINE HCL 0.25 % INJ/PF (2.5 MG/1 ML) 30 ML VIAL ONE (10:30)
[2016-06-21] MEDS ORDERED: FENTANYL/BUPIVACAINE/NS/PF 200 MCG/100 ML RTUINJ EPI ONE (10:30)
[2016-06-21] MEDS ORDERED: BUPIVACAINE HCL 0.25 % INJ/PF (2.5 MG/1 ML) 30 ML VIAL INFIL ONE (11:15)
[2016-06-21] MEDS ORDERED: BENZOIN/ALOE VERA/STORAX/TOLU TINCTURE 60 ML TP PRN (11:15)
[2016-06-21] MEDS ORDERED: FENTANYL/BUPIVACAINE/NS/PF 100 ML EPI PRN (11:15)
[2016-06-21] MEDS ORDERED: MISOPROSTOL 0.2 MG TABLET ONE (13:19)
[2016-06-21] MEDS ORDERED: LIDOCAINE 1% INJ-PF (10 MG/ML) 30 ML SDV ONE (13:19)
[2016-06-21] MEDS ORDERED: MEASLES,MUMPS&RUBELLA VACC/PF 0.5 ML VIAL SUBCUT PRN (13:37)
[2016-06-21] MEDS ORDERED: BENZOCAINE/MENTHOL AEROSOL SPRAY 56 ML TOP PRN (13:37)
[2016-06-21] MEDS ORDERED: ACETAMINOPHEN WITH CODEINE #3 TABLET PO PRN ×2 (13:37)
[2016-06-21] MEDS ORDERED: ZOLPIDEM TARTRATE 5 MG TABLET PO PRN (13:37)
[2016-06-21] MEDS ORDERED: DIPH/PERTUSS(ACELL)/TETANUS VAC/PF 0.5 ML SYR (>=10YO) IM PRN (13:37)
[2016-06-21] MEDS ORDERED: DIBUCAINE 1% OINTMENT 28 GM TP PRN (13:37)
[2016-06-21] MEDS: IBUPROFEN 800 MG TABLET PO SCH ×2 (15:22→22:16)
[2016-06-21] MEDS ORDERED: IBUPROFEN 800 MG TABLET ONE (15:23)
--- NOTE | 2016-06-21 15:52 | Admission Physical ---
Datetime Report Generated by CPN: 06/21/2016 15:52 CURRENT ADMISSION Hx Assessment: The History has been Reviewed and is Current Chief Complaint: Signs/Symptoms Gestational HTN Indication for Induction: Post Dates; Maternal Diabetes Indication for Induction- Other: GDMA1 Admit Plan: Admit to Unit ALLERGIES Medication Allergies: No Medication Allergies: No Known Allergies (06/20/2016) Medication Allergies: No Known Allergies (06/18/2011) Latex: No Latex Allergies Food Allergies: none Environmental Allergies: none OBSTETRICAL HISTORY EDC: 06/20/2016 00:00 : 4 Para: 2 Term: 2 : 0 SAB: 1 IAB: 0 Ectopic: 0 Livin Cesareans: 0 VBACs: 0 Multiple Births: 0 Gestational Diabetes: Yes Rh Sensitization: No Incompetent Cervix: No AMBAR: No Infertility: No ART Treatment: No Uterine Anomaly: No IUGR: No Hx Previous C/S: No Macrosomia: No Hx Loss/Stillborn: No PIH: No Hx : No Placenta Previa/Abruption: No Depression/PP Depression: No PTL/PROM: No Post Hemorrhage: Yes Current Procedures: Ultrasound; NST Obstetrical History Comments: G1: SAB 2005 G2: 2006, shoulder dystocia [id number] G3: 2011, hemorrhage G4: current, GDM SEE RECORDS Alcohol: No Marijuana : No Cocaine: No Other Illicit Drugs: No Cigarettes: Never Smoker. [id number] MEDICAL HISTORY Diabetes: Yes Diabetes Type: Gestational Diabetes Blood Transfusion: No Pulmonary Disease (Asthma, TB): No Breast Disease: No Hypertension: No Call Worker Person Surgery: No Heart Disease: No Hosp/Surgery: Yes Autoimmune Disorder: No Anesthetic Complications: No Kidney Disease: No Abnormal Pap Smear: Yes Neuro/Epilepsy: No Psychiatric Disorders: No Other Medical Diseases: No Hepatitis/Liver Disease: No Significant Family History: No Varicosities/Phlebitis: No Trauma/Violence : No Thyroid Dysfunction: No Medical History Comments: childbirth, gall bladder August 2015, D_C, abnl pap 2015 INFECTIOUS HISTORY Gonorrhea: No Genital Herpes: No Chlamydia: Yes Tuberculosis: No Syphilis: No Hepatitis: No HIV/AIDS Exposure: No Rash or Viral Illness: No HPV: No Infectious History Comments: Chlamydia 2011, treated PHYSICAL EXAM General: Normal HEENT: Normal Neurologic: Normal Thyroid: Normal Heart: Deferred Lungs: Normal Breast: Normal Back: Normal Abdomen: Normal Genitourinary Exam: Normal Extremities: Normal DTRs: Normal Pelvic Type: Adequate Physical Exam Comments: pelvis proven to 9lbs 10z VAGINAL EXAM Dilatation: 3 Effacement: 70 Station: -1 Contraction Comments: 2-5 MEMBRANES Membranes: Ruptured Amniotic Fluid Color: Clear FETUS A EGA: 40.1 Monitoring: External US FHR- Baseline: 135 Variability: Moderate 6-25bpm Accelerations: 15X15 Decelerations: None FHR Category: Category I Estimated Weight (gm): 3517 Presentation: Vertex Admit Comment: Admit to L _ D, cervidil over night Plan for pitocin in the am GBS negative OB hx significant for LGA infant 9lbs 10oz, with should dystocia, without injury to infant. Pt has been fully counseled through out on risks of shoulder dystocia reocccurance. Pt desires vaginal delivery. Pt had subsequent 8 lbs 10oz without shoulder dystocia, had PPH. [id number] g per sono Pt is GDMA1 See record for complete hx. PLANS FOR LABOR AND DELIVERY Pain Management: Epidural Feeding Preference: Breast Benefit of Breast Feed Discussed: Yes Circumcision: N/A INFORMED CONSENT Informed Consent Obtained: Vaginal Delivery Assignment: Beena Hunt MD Signature: with User ID: [email or web address] : with User ID: Dorothy
--- NOTE | 2016-06-21 16:50 | Delivery Summary ---
Del Sum A-C Datetime Report Generated by CPN: 06/21/2016 16:50 ADMISSION DATA Chief Complaint: Signs/Symptoms Gestational HTN Indication for Induction: Post Dates; Maternal Diabetes Indication for Induction Comment: GDMA1 Admission Impression: Term, Intrauterine ; No Active Labor; Intact Membranes; Induction of Labor Admit Provider Comments: Admit to L _ D, cervidil over night Plan for pitocin in the am GBS negative OB hx significant for LGA 9lbs 10oz, with should dystocia, without injury to infant. Pt has been fully counseled through out on risks of shoulder dystocia reocccurance. Pt desires vaginal delivery. Pt had subsequent 8 lbs 10oz infant without shoulder dystocia, had PPH. [id number] g per sono Pt is GDMA1 See record for complete hx. DELIVERY PERSONNEL Delivery Doctor:: Nataly Golden CNM Labor and Delivery Nurse:: Aminah Pérez RNsteam service inspector Nurse:: Saloni Hobson RN Student Observers:: SN Giovanni Special Effects Person/WIRE MACHINE OPERATOR: Brittany Louie CNA II Special Effects Person/WIRE MACHINE OPERATOR: [facility] A[facility] MATERNAL INFORMATION Delivery Anesthesia: Epidural Medications After Delivery: Pitocin Bolus-Please Comment Meds After Delivery Comment: Pitocin 20 units in 1000 mL NS Estimated Blood Loss (ml): 300 Maternal Complications: None Provider Comments: of viable female infant over intact perineum, head, shoulders, and body delivered without difficulty. with spontaneous cry and respirations, to maternal abdomen, true know X2 noted in the cord, cord clamped X2, afer 2 min delay, spontaneous delivery of intact placenta via pang mechanism, appears intact 3 VC. Hemostasis acheived with external fundal massage and IV pitocin, vagina and perineum inspected, small superficial periuretheral lac noted, not bleeding, not repaired, mother and infant in stable condition. Routine pp care. LABOR SUMMARY EDC: 06/20/2016 00:00 No. Babies in Womb: 1 Attempted: No Labor Anesthesia: Epidural LABOR INFORMATION Reason for Induction: Maternal Diabetes Onset of Labor: 06/21/2016 08:02 Complete Dilatation: 06/21/2016 13:17 Cervical Ripening Agents: Cervidil Oxytocin: Induction Group B Beta Strep: negative Antibiotics # of Doses: 0 Steroids Given: None Reason Steroids Not Administered: Not Applicable MEMBRANES Membranes Rupture Method: Artificial Rupture of Membranes: 06/21/2016 08:02 Length of Rupture (hr): 5.35 Amniotic Fluid Color: Clear Amniotic Fluid Amount: Small Amniotic Fluid Odor: Normal STAGES OF LABOR Stage 1 hr: 5 Stage 1 min: 15 Stage 2 hr: 0 Stage 2 min: 6 Stage 3 hr: 0 Stage 3 min: 5 Total Time in Labor hr: 5 Total Time in Labor min: 26 VAGINAL DELIVERY Episiotomy: None Laceration Extension: N/A Laceration Type: None Laceration Repair Note: n/a Sponge Count Correct: Yes Sharps Count Correct: N/A CSECTION DELIVERY Primary Indication: N/A Secondary Indication: N/A CSection Incidence: N/A Labor: N/A Elective: N/A CSection Incision: N/A BABY A INFORMATION Infant Delivery Date/Time: 06/21/2016 13:23 Method of Delivery: Vaginal Born in Route : No : N/A Forceps: N/A Vacuum Extraction: N/A Shoulder Dystocia : No PRESENTATION/POSITION BABY A Presentation: Cephalic Cephalic Presentation: Vertex Vertex Position: Left Occipital Posterior Breech Presentation: N/A PLACENTA INFORMATION BABY A Placenta Delivery Time : 06/21/2016 13:28 Placenta Method of Delivery: Spontaneous Placenta Status: Delivered SCORES BABY A Heart Rate 1 min: >100 bpm Resp Effort 1 min: Good Cry Reflex Irritability 1 min: Cough or Sneeze or Pulls Away Muscle Tone 1 min: Active Motion Color 1 min: Body Burgin, Extremities Blue Resuscitation Effort 1 min: Tactile Stimulation SCORE 1 MIN: 9 Heart Rate 5 min: >100 bpm Resp Effort 5 min: Good Cry Reflex Irritability 5 min: Cough or Sneeze or Pulls Away Muscle Tone 5 min: Active Motion Color 5 min: Body Burgin, Extremities Blue Resuscitation Effort 5 min: Tactile Stimulation SCORE 5 MIN: 9 INFORMATION BABY A Gestational Age at Delivery: 40.1 Gestational Status: Full Term- 39- 40.6 Weeks Infant Outcome : Liveborn Infant Condition : Stable Sex: Female IDENTIFICATION BABY A Infant Verification Date/Time: 06/21/2016 14:21 ID Band Number: [id number] Mother's Name Verified: Yes Infant RN Verifying Infant: Elicia Garza, RN, MIhsan Pérez, RN WEIGHT/LENGTH BABY A Infant Birthweight (gm): 3660 Infant Weight (lb): 8 Weight (oz): 1 Length (in): 20.00 Length (cm): 50.80 CORD INFORMATION BABY A No. Cord Vessels: 3 Nuchal Cord : N/A True Knot: 2 Cord Blood Taken: Yes-For Storage (Mom's Blood type +) Infant Suction: None ASSESSMENT BABY A Infant Complications: None Physical Findings at Delivery: Within Normal Limits Infant Respirations: Appears Normal Skin to Skin: Yes Skin to Skin Time (min): 30 Servicer/ALS Called : No Care By: Viviane Hobson RN Transferred To: Remains with Mother BABY B INFORMATION : N/A SIGNATURES Assignment: Beena Hunt MD Signature: with User ID: Dorothy : with User ID: Dorothy
[2016-06-21] MEDS: FERROUS SULFATE 325 MG TABLET PO SCH (17:42)
[2016-06-21] MEDS: DOCUSATE SODIUM 100 MG CAPSULE PO SCH (17:42)
--- NOTE | 2016-06-21 19:00 | L&D Flow Sheet ---
LD Flowsheet Datetime Report Generated by CPN: 06/21/2016 19:00 Datetime: 06/21/2016 14:19 NBP Sys/Joanna/Mean (mmHg): 115 (QS system process) : 66 (QS system process) : 85 (QS system process) Pulse: 85 (QS system process) Datetime: 06/21/2016 14:00 Pain Scale: 0 (Aminah éPrez RN) Pain Presence: None/Denies (Aminah Pérez RN) Pain Type: N/A (Aminah Beto, RN) Pain Goal: 1 (Aminah Beto, RN) Pain Relief Measures: Comfort Measures (Aminah Pérez, RN) Pain Assessment Comments: (Aminah Pérez, RN) Datetime: 06/21/2016 13:50 NBP Sys/Joanna/Mean (mmHg): 119 (QS system process) : 56 (QS system process) : 81 (QS system process) Pulse: 88 (QS system process) Datetime: 06/21/2016 13:28 Stage 2 Comments: Placenta delivered. Pitocin bolusing. (Saloni Hobson, RN) Datetime: 06/21/2016 13:23 Stage of : Recovery (Aminah Pérez RN) Stage 2 Comments: viable girl; see delivery summary. (Saloni Hobson RN) Datetime: 06/21/2016 13:20 NBP Sys/Joanna/Mean (mmHg): 146 (QS system process) : 87 (QS system process) : 109 (QS system process) Pulse: 115 (QS system process) LaborFlag: Antepartum (QS system process) Datetime: 06/21/2016 13:17 Dilatation (cm): 10.0 (Saloni Hobson RN) Effacement (%): 100 (Saloni Hobson RN) Station: 3 (Saloni Hobson RN) Exam by: Elicia Golden CNM (Saloni Hobson RN) Datetime: 06/21/2016 13:15 Monitor Mode: External; Palpation (Aminah Pérez RN) Frequency (min): 2-3 (Aminah Pérez RN) Quality: Moderate (Aminah Pérez RN) Duration (sec): 60-90 (Aminah Pérez RN) Duration Criteria: Less than Two 120 Second Contractions (Aminah Pérez RN) Pattern: Normal: <= 5 Contractions in 10 Minutes (Aminah Pérez RN) Resting Tone (Palpate): Relaxed (Aminah Pérez RN) Monitor Mode: External US (Aminah Pérez RN) FHR Baseline Rate : 125 (Aminah Pérez RN) FHR Baseline Changes: No Baseline Change (Aminah Pérez RN) Variability: Moderate 6-25 bpm (Aminah Pérez RN) Accelerations: 15X15 (Aminah Pérez RN) Decelerations: Early (Aminah Pérez RN) Communication: RN at Bedside; Provider at Bedside (Aminah Pérez RN) Communication Comments: RN to remain at bedside continuously monitoring heart tones and adjusting monitors (Aminah Pérez RN) Datetime: 06/21/2016 13:06 NBP Sys/Joanna/Mean (mmHg): 126 (QS system process) : 72 (QS system process) : 93 (QS system process) Pulse: 99 (QS system process) LaborFlag: Antepartum (QS system process) Datetime: 06/21/2016 13:00 Monitor Mode: External; Palpation (Aminah Pérez, DORYS) Frequency (min): 2-3 (Aminah Pérez, DORYS) Quality: Moderate (Aminah Pérez, RN) Duration (sec): 60-90 (Aminah Pérez, RN) Duration Criteria: Less than Two 120 Second Contractions (Aminah Pérez, RN) Pattern: Normal: <= 5 Contractions in 10 Minutes (Aminah Pérez, RN) Resting Tone (Palpate): Relaxed (Aminah Pérez, RN) Monitor Mode: External US (Aminah Pérez, RN) FHR Baseline Rate : 130 (Aminah Pérez, RN) FHR Baseline Changes: No Baseline Change (Aminah Pérez, RN) Variability: Moderate 6-25 bpm (Aminah Pérez, RN) Accelerations: 15X15 (Aminah Pérez, RN) Decelerations: Early (Aminah Pérez, RN) Datetime: 06/21/2016 12:52 NBP Sys/Joanna/Mean (mmHg): 95 (QS system process) : 51 (QS system process) : 68 (QS system process) Pulse: 83 (QS system process) IV/Blood Work: New IV Bag Hung (Aminah Pérez RN) Patient Care Comments: D5LR infusing per order (Aminah Pérez RN) LaborFlag: Antepartum (QS system process) Datetime: 06/21/2016 12:49 Bedside Blood Glucose: 69 L (Annotations: MD Notified) (QS system process) Communication Comments: H. INDRA Golden notified of patient's blood sugar of 69, order received to start D5LR at 125/hr (Aminah Pérez RN) LaborFlag: Antepartum (QS system process) Datetime: 06/21/2016 12:48 Communication Comments: blood glucose 69 (Aminah Pérez RN) Datetime: 06/21/2016 12:45 Monitor Mode: External; Palpation (Aminah Beto, RN) Frequency (min): 2-4 (Aminah Beto, RN) Quality: Moderate (Aminah Beto, RN) Duration (sec): 50-90 (Aminah Beto, RN) Duration Criteria: Less than Two 120 Second Contractions (Aminah Beto, RN) Pattern: Normal: <= 5 Contractions in 10 Minutes (Aminah Beto, RN) Resting Tone (Palpate): Relaxed (Aminah Beto, RN) Monitor Mode: External US (Aminah Beto, RN) FHR Baseline Rate : 130 (Aminah Beto, RN) FHR Baseline Changes: No Baseline Change (Aminah Beto, RN) Variability: Moderate 6-25 bpm (Aminah Beto, RN) Accelerations: None (Aminah Beto, RN) Decelerations: Early (Aminah Beto, RN) Datetime: 06/21/2016 12:41 Patient Position/Activity: Left Lateral; Peanut Ball (Aminah Beto, RN) Datetime: 06/21/2016 12:37 NBP Sys/Joanna/Mean (mmHg): 111 (QS system process) : 69 (QS system process) : 84 (QS system process) Pulse: 73 (QS system process) LaborFlag: Antepartum (QS system process) Datetime: 06/21/2016 12:30 Monitor Mode: External; Palpation (Aminah Pérez RN) Frequency (min): 1-3 (Aminah Pérez, DORYS) Quality: Moderate (Aminah Pérez RN) Duration (sec): 50-90 (Aminah Pérez, RN) Duration Criteria: Less than Two 120 Second Contractions (Aminah Pérez, DORYS) Pattern: Normal: <= 5 Contractions in 10 Minutes (Aminah Pérez RN) Resting Tone (Palpate): Relaxed (Aminah Pérez, RN) Monitor Mode: External US (Aminah Pérez, RN) FHR Baseline Rate : 135 (Aminah Pérez RN) FHR Baseline Changes: No Baseline Change (Aminah Pérez, DORYS) Variability: Moderate 6-25 bpm (Aminah Pérez, RN) Accelerations: None (Aminah Pérez, RN) Decelerations: Early (Aminah Pérez, RN) Datetime: 06/21/2016 12:20 NBP Sys/Joanna/Mean (mmHg): 120 (QS system process) : 64 (QS system process) : 86 (QS system process) Pulse: 80 (QS system process) LaborFlag: Antepartum (QS system process) Datetime: 06/21/2016 12:15 Monitor Mode: External; Palpation (Aminah Pérez RN) Frequency (min): 2-2.5 (Aminah Pérez, DORYS) Quality: Moderate (Aminah Pérez, RN) Duration (sec): 80-100 (Aminah Pérez, RN) Duration Criteria: Less than Two 120 Second Contractions (Aminah Pérez, RN) Pattern: Normal: <= 5 Contractions in 10 Minutes (Aminah Pérez, RN) Resting Tone (Palpate): Relaxed (Aminah Pérez, RN) Monitor Mode: External US (Aminah Pérez, RN) FHR Baseline Rate : 140 (Aminah Pérez, DORYS) FHR Baseline Changes: No Baseline Change (Aminah Pérez, RN) Variability: Moderate 6-25 bpm (Aminah Pérez, RN) Accelerations: 15X15 (Aminah Pérez, RN) Decelerations: None (Aminah Pérez, RN) Datetime: 06/21/2016 12:12 Patient Position/Activity: Right Lateral; Low Fowlers (Aminah Pérez RN) Datetime: 06/21/2016 12:06 NBP Sys/Joanna/Mean (mmHg): 116 (QS system process) : 65 (QS system process) : 83 (QS system process) Pulse: 75 (QS system process) LaborFlag: Antepartum (QS system process) Datetime: 06/21/2016 12:00 Temperature (F): 97.9 (Aminah Pérez RN) Temperature (C): 36.6 (QS system process) Temperature Route: Oral (Aminah Pérez RN) Monitor Mode: External; Palpation (Aminah Pérez RN) Frequency (min): 2-2.5 (Aminah Pérez RN) Quality: Mild/Moderate (Aminah Pérez RN) Duration (sec): 60-80 (Aminah Pérez RN) Duration Criteria: Less than Two 120 Second Contractions (Aminah Pérez RN) Pattern: Normal: <= 5 Contractions in 10 Minutes (Aminah Pérez RN) Resting Tone (Palpate): Relaxed (Aminah Pérez RN) Monitor Mode: External US (Aminah Pérez RN) FHR Baseline Rate : 140 (Aminah Pérez RN) FHR Baseline Changes: No Baseline Change (Aminah Pérez RN) Variability: Moderate 6-25 bpm (Aminah Pérez RN) Accelerations: 15X15 (Aminah Pérez RN) Decelerations: None (Aminah Pérez RN) Pitocin (milliunit): Pitocin Remains (milliunits) @ (Annotations: 14) (Aminah Pérez RN) LaborFlag: Antepartum (QS system process) Datetime: 06/21/2016 11:51 Dilatation (cm): 4.0 (Aminah Pérez RN) Effacement (%): 75 (Aminah Pérez RN) Station: -1 (Aminah Pérez RN) Exam by: Raina Pérez RN (Aminah Pérez RN) Datetime: 06/21/2016 11:50 NBP Sys/Joanna/Mean (mmHg): 107 (QS system process) : 59 (QS system process) : 78 (QS system process) Pulse: 82 (QS system process) LaborFlag: Antepartum (QS system process) Datetime: 06/21/2016 11:49 NBP Sys/Joanna/Mean (mmHg): 116 (QS system process) : 66 (QS system process) : 86 (QS system process) Pulse: 210 (QS system process) LaborFlag: Antepartum (QS system process) Datetime: 06/21/2016 11:46 I/O Interventions: Sanders Cath Inserted (Aminah Pérez, RN) Datetime: 06/21/2016 11:45 Monitor Mode: External; Palpation (Aminah Pérez RN) Frequency (min): 2-3 (Aminah Pérez, DORYS) Quality: Mild/Moderate (Aminah Pérez, RN) Duration (sec): 70-80 (Aminah Pérez, RN) Duration Criteria: Less than Two 120 Second Contractions (Aminah Pérez, RN) Pattern: Normal: <= 5 Contractions in 10 Minutes (Aminah Pérez, RN) Resting Tone (Palpate): Relaxed (Aminah Pérez, RN) Monitor Mode: External US (Aminah Pérez, DORYS) FHR Baseline Rate : 140 (Aminah Pérez, RN) FHR Baseline Changes: No Baseline Change (Aminah Pérez RN) Variability: Moderate 6-25 bpm (Aminah Pérez, RN) Accelerations: 15X15 (Aminah Pérez, RN) Decelerations: None (Aminah Pérez, RN) Pitocin (milliunit): Pitocin Remains (milliunits) @ (Annotations: 14) (Aminah Pérez, DORYS) Datetime: 06/21/2016 11:44 NBP Sys/Joanna/Mean (mmHg): 112 (QS system process) : 61 (QS system process) : 79 (QS system process) Pulse: 96 (QS system process) LaborFlag: Antepartum (QS system process) Datetime: 06/21/2016 11:43 NBP Sys/Joanna/Mean (mmHg): 122 (QS system process) : 58 (QS system process) : 83 (QS system process) Pulse: 87 (QS system process) LaborFlag: Antepartum (QS system process) Datetime: 06/21/2016 11:42 NBP Sys/Joanna/Mean (mmHg): 118 (QS system process) : 59 (QS system process) : 80 (QS system process) Pulse: 90 (QS system process) LaborFlag: Antepartum (QS system process) Datetime: 06/21/2016 11:41 NBP Sys/Joanna/Mean (mmHg): 121 (QS system process) : 58 (QS system process) : 84 (QS system process) Pulse: 85 (QS system process) LaborFlag: Antepartum (QS system process) Datetime: 06/21/2016 11:40 NBP Sys/Joanna/Mean (mmHg): 122 (QS system process) : 64 (QS system process) : 86 (QS system process) Pulse: 91 (QS system process) LaborFlag: Antepartum (QS system process) Datetime: 06/21/2016 11:39 NBP Sys/Joanna/Mean (mmHg): 111 (QS system process) : 60 (QS system process) : 80 (QS system process) Pulse: 99 (QS system process) LaborFlag: Antepartum (QS system process) Datetime: 06/21/2016 11:38 NBP Sys/Joanna/Mean (mmHg): 118 (QS system process) : 67 (QS system process) : 86 (QS system process) Pulse: 108 (QS system process) LaborFlag: Antepartum (QS system process) Datetime: 06/21/2016 11:37 NBP Sys/Joanna/Mean (mmHg): 116 (QS system process) : 68 (QS system process) : 86 (QS system process) Pulse: 93 (QS system process) LaborFlag: Antepartum (QS system process) Datetime: 06/21/2016 11:36 NBP Sys/Joanna/Mean (mmHg): 120 (QS system process) : 68 (QS system process) : 88 (QS system process) Pulse: 117 (QS system process) Epidural Procedure: Loading Dose (Aminah Pérez RN) LaborFlag: Antepartum (QS system process) Datetime: 06/21/2016 11:35 NBP Sys/Joanna/Mean (mmHg): 122 (QS system process) : 79 (QS system process) : 95 (QS system process) Pulse: 111 (QS system process) Epidural Procedure: Test Dose (Aminah Pérez, RN) LaborFlag: Antepartum (QS system process) Datetime: 06/21/2016 11:34 Epidural Procedure: Cath Placed (Aminah Beto, RN) Datetime: 06/21/2016 11:31 NBP Sys/Joanna/Mean (mmHg): 123 (QS system process) : 84 (QS system process) : 99 (QS system process) Pulse: 95 (QS system process) Procedure Verify: Correct Patient Identity; Correct Side and Site are Marked; Accurate Procedure Consent Form; Agreement on Procedure to be Done; Correct Patient Position; Relevant Images and Results are Properly Labeled and Displayed; Addressed Need to Administer Antibiotics or Fluids for Irrigation; Safety Precautions Based on Patient History or Medication Use (Aminah Pérez RN) Anesthesia Plans: Epidural (Aminah Pérez RN) LaborFlag: Antepartum (QS system process) Datetime: 06/21/2016 11:30 Contraction Comments: unable to determine contraction pattern due to patient sitting for epidural (Aminah Pérez RN) Comments: unable to determine baseline due to patient positioning for epidural (Aminah Pérez RN) Pitocin (milliunit): Pitocin Remains (milliunits) @ (Annotations: 14 ) (Aminah Pérez RN) Datetime: 06/21/2016 11:27 NBP Sys/Joanna/Mean (mmHg): 133 (QS system process) : 71 (QS system process) : 96 (QS system process) Pulse: 105 (QS system process) LaborFlag: Antepartum (QS system process) Datetime: 06/21/2016 11:22 Epidural Positioning: Sitting (Aminah Pérez RN) Datetime: 06/21/2016 11:15 Monitor Mode: External; Palpation (Aminah Pérez RN) Frequency (min): 2-3 (Aminah Pérez RN) Quality: Mild/Moderate (Aminah Pérez RN) Duration (sec): 50-70 (Aminah Pérez RN) Duration Criteria: Less than Two 120 Second Contractions (Aminah Pérez RN) Pattern: Normal: <= 5 Contractions in 10 Minutes (Aminah Pérez RN) Resting Tone (Palpate): Relaxed (Aminah Pérez RN) Monitor Mode: External US (Aminah Pérez RN) FHR Baseline Rate : 140 (Aminah Pérez RN) FHR Baseline Changes: No Baseline Change (Aminah Pérez RN) Variability: Moderate 6-25 bpm (Aminah Pérez RN) Accelerations: 15X15 (Aminah Pérez RN) Decelerations: None (Aminah Pérez RN) Pitocin (milliunit): Pitocin Remains (milliunits) @ (Annotations: 14) (Aminah Pérez, RN) Datetime: 06/21/2016 11:00 Monitor Mode: External; Palpation (Aminah Pérez RN) Frequency (min): 1.5-4 (Aminah Pérez, DORYS) Quality: Mild/Moderate (Aminah Pérez, RN) Duration (sec): 50-70 (Aminah Pérez, DORYS) Duration Criteria: Less than Two 120 Second Contractions (Aminah Pérez, DORYS) Pattern: Normal: <= 5 Contractions in 10 Minutes (Aminah Pérez, RN) Resting Tone (Palpate): Relaxed (Aminah Pérez, RN) Monitor Mode: External US (Aminah Pérez, RN) FHR Baseline Rate : 140 (Aminah Pérez, RN) FHR Baseline Changes: No Baseline Change (Aminah Pérez, RN) Variability: Moderate 6-25 bpm (Aminah Pérez, RN) Accelerations: 15X15 (Aminah Pérez, RN) Decelerations: None (Aminah Pérez, DORYS) Pitocin (milliunit): Pitocin Remains (milliunits) @ (Annotations: 14) (Aminah Pérez, RN) Datetime: 06/21/2016 10:45 Monitor Mode: External; Palpation (Aminah Pérez, DORYS) Frequency (min): 1.5-4 (Aminah Pérez RN) Quality: Mild/Moderate (Aminah Pérez, RN) Duration (sec): 50-70 (Aminah Pérez, RN) Duration Criteria: Less than Two 120 Second Contractions (Aminah Pérez, RN) Pattern: Normal: <= 5 Contractions in 10 Minutes (Aminah Pérez, RN) Resting Tone (Palpate): Relaxed (Aminah Pérez, RN) Monitor Mode: External US (Aminah Pérez, DORYS) FHR Baseline Rate : 145 (Aminah Pérez RN) FHR Baseline Changes: No Baseline Change (Aminah Pérez RN) Variability: Moderate 6-25 bpm (Aminah Pérez, RN) Accelerations: 15X15 (Aminah Pérez RN) Decelerations: None (Aminah Pérez, DORYS) Pitocin (milliunit): Pitocin Remains (milliunits) @ (Annotations: 14) (Aminah Pérez, DORYS) Datetime: 06/21/2016 10:30 Monitor Mode: External; Palpation (Aminah Pérez, DORYS) Frequency (min): 2-3 (Aminah Pérez, DORYS) Quality: Mild/Moderate (Aminah Pérez, DORYS) Duration (sec): 50-70 (Aminah Pérez, DORYS) Duration Criteria: Less than Two 120 Second Contractions (Aminah Pérez, RN) Pattern: Normal: <= 5 Contractions in 10 Minutes (Aminah Pérez, RN) Resting Tone (Palpate): Relaxed (Aminah Pérez, RN) Monitor Mode: External US (Aminah Pérez, RN) FHR Baseline Rate : 145 (Aminah Pérez, RN) FHR Baseline Changes: No Baseline Change (Aminah Pérez, RN) Variability: Moderate 6-25 bpm (Aminah Pérez, RN) Accelerations: 15X15 (Aminah Pérez, RN) Decelerations: None (Aminah Pérez, RN) Pitocin (milliunit): Pitocin Increased to (milliunits) @ (Annotations: 14 ) (Aminah Pérez, RN) Datetime: 06/21/2016 10:25 Monitor Interventions for FHR: Ultrasound Adjusted (Aminah Pérez, RN) Datetime: 06/21/2016 10:21 Patient Care Comments: patient standing beside bed (Aminah Pérez, RN) Datetime: 06/21/2016 10:18 I/O Interventions: Up to BR (Aminah Pérez RN) Datetime: 06/21/2016 10:17 Procedure Verify: Correct Patient Identity; Correct Side and Site are Marked; Accurate Procedure Consent Form; Agreement on Procedure to be Done; Relevant Images and Results are Properly Labeled and Displayed; Addressed Need to Administer Antibiotics or Fluids for Irrigation; Safety Precautions Based on Patient History or Medication Use (Aminah Pérez RN) Anesthesia Plans: Epidural (Aminah Pérez RN) Datetime: 06/21/2016 10:15 NBP Sys/Joanna/Mean (mmHg): 118 (QS system process) : 64 (QS system process) : 84 (QS system process) Pulse: 102 (QS system process) Monitor Mode: External; Palpation (Aminah Pérez RN) Frequency (min): 1.5-2 (Aminah Pérez RN) Quality: Mild (Aminah Pérez RN) Duration (sec): 60-70 (Aminah Pérez RN) Duration Criteria: Less than Two 120 Second Contractions (Aminah Pérez RN) Pattern: Normal: <= 5 Contractions in 10 Minutes (Aminah Pérez RN) Resting Tone (Palpate): Relaxed (Aminah Pérez RN) Monitor Mode: External US (Aminah Pérez RN) FHR Baseline Rate : 140 (Aminah Pérez, RN) FHR Baseline Changes: No Baseline Change (Aminah Pérez RN) Variability: Moderate 6-25 bpm (Aminah Pérez RN) Accelerations: 15X15 (Aminah Pérez RN) Decelerations: None (Aminah Pérez RN) Pitocin (milliunit): Pitocin Increased to (milliunits) @ (Annotations: 12) (Aminah Pérez RN) LaborFlag: Antepartum (QS system process) Datetime: 06/21/2016 10:00 Monitor Mode: External; Palpation (Aminah Pérez RN) Frequency (min): 2-4 (Aminah Pérez RN) Quality: Mild (Aminah Pérez RN) Duration (sec): 40-60 (Aminah Pérez RN) Duration Criteria: Less than Two 120 Second Contractions (Aminah Pérez RN) Pattern: Normal: <= 5 Contractions in 10 Minutes (Aminah Pérez RN) Resting Tone (Palpate): Relaxed (Aminah Pérez RN) Monitor Mode: External US (Aminah Pérez RN) FHR Baseline Rate : 140 (Aminah Pérez RN) FHR Baseline Changes: No Baseline Change (Aminah Pérez RN) Variability: Moderate 6-25 bpm (Aminah Pérez, RN) Accelerations: 15X15 (Aminah Pérez, RN) Decelerations: None (Aminah Pérez RN) Pitocin (milliunit): Pitocin Increased to (milliunits) @ 10 (Aminah Pérez RN) Datetime: 06/21/2016 09:46 NBP Sys/Joanna/Mean (mmHg): 121 (QS system process) : 67 (QS system process) : 86 (QS system process) Pulse: 87 (QS system process) LaborFlag: Antepartum (QS system process) Datetime: 06/21/2016 09:45 Monitor Mode: External; Palpation (Aminah Pérez RN) Frequency (min): 1.5-4 (Aminah Pérez RN) Quality: Mild (Aminah Pérez RN) Duration (sec): 40-120 (Aminah Pérez RN) Duration Criteria: Less than Two 120 Second Contractions (Aminah Pérez RN) Pattern: Normal: <= 5 Contractions in 10 Minutes (Aminah Pérez RN) Resting Tone (Palpate): Relaxed (Aminah Pérez RN) Monitor Mode: External US (Aminah Pérez RN) FHR Baseline Rate : 140 (Aminah Pérez RN) FHR Baseline Changes: No Baseline Change (Aminah Pérez RN) Variability: Moderate 6-25 bpm (Aminah Pérez RN) Accelerations: 15X15 (Aminah Pérez RN) Decelerations: None (Aminah Pérez RN) Pitocin (milliunit): Pitocin Remains (milliunits) @ (Annotations: 8) (Aminah Pérez RN) Datetime: 06/21/2016 09:30 NBP Sys/Joanna/Mean (mmHg): 117 (QS system process) : 66 (QS system process) : 86 (QS system process) Pulse: 88 (QS system process) Monitor Mode: External; Palpation (Aminah Pérez RN) Frequency (min): 2.5-3.5 (Aminah Pérez RN) Quality: Mild (Aminah Pérez RN) Duration (sec): 50-70 (Aminah Pérez RN) Duration Criteria: Less than Two 120 Second Contractions (Aminah Pérez RN) Pattern: Normal: <= 5 Contractions in 10 Minutes (Aminah Pérez RN) Resting Tone (Palpate): Relaxed (Aminah Pérez RN) Monitor Mode: External US (Aminah Pérez RN) FHR Baseline Rate : 140 (Aminah Pérez RN) FHR Baseline Changes: No Baseline Change (Aminah Pérez RN) Variability: Moderate 6-25 bpm (Aminah Pérez RN) Accelerations: 15X15 (Aminah Pérez RN) Decelerations: None (Aminah Pérez RN) Pitocin (milliunit): Pitocin Increased to (milliunits) @ (Annotations: 8) (Aminah Pérez RN) LaborFlag: Antepartum (QS system process) Datetime: 06/21/2016 09:15 NBP Sys/Joanna/Mean (mmHg): 120 (QS system process) : 67 (QS system process) : 88 (QS system process) Pulse: 83 (QS system process) Monitor Mode: External; Palpation (Aminah Pérez RN) Frequency (min): 2-6 (Aminah Pérez RN) Quality: Mild (Aminah Pérez RN) Duration (sec): 60 (Aminah Pérez RN) Duration Criteria: Less than Two 120 Second Contractions (Aminah Pérez RN) Pattern: Normal: <= 5 Contractions in 10 Minutes (Aminah Pérez RN) Resting Tone (Palpate): Relaxed (Aminah Pérez RN) Monitor Mode: External US (Aminah Pérez RN) FHR Baseline Rate : 135 (Aminah Pérez RN) FHR Baseline Changes: No Baseline Change (Aminah Pérez RN) Variability: Moderate 6-25 bpm (Aminah Pérez RN) Accelerations: 15X15 (Aminah Pérez RN) Decelerations: None (Aminah Pérez RN) Pitocin (milliunit): Pitocin Increased to (milliunits) @ (Annotations: 6) (Aminah Pérez RN) LaborFlag: Antepartum (QS system process) Datetime: 06/21/2016 09:01 NBP Sys/Joanna/Mean (mmHg): 113 (QS system process) : 56 (QS system process) : 77 (QS system process) Pulse: 83 (QS system process) LaborFlag: Antepartum (QS system process) Datetime: 06/21/2016 09:00 Monitor Mode: External; Palpation (Aminah Pérez RN) Frequency (min): 3-3.5 (Aminah Pérez RN) Quality: Mild (Aminah Pérez RN) Duration (sec): 40-80 (Aminah Pérez RN) Duration Criteria: Less than Two 120 Second Contractions (Aminah Pérez RN) Pattern: Normal: <= 5 Contractions in 10 Minutes (Aminah Pérez RN) Resting Tone (Palpate): Relaxed (Aminah Pérez RN) Contraction Comments: irritability (Aminah Pérez RN) Monitor Mode: External US (Aminah Pérez RN) FHR Baseline Rate : 135 (Aminah Pérez RN) FHR Baseline Changes: No Baseline Change (Aminah Pérez RN) Variability: Moderate 6-25 bpm (Aminah Pérez RN) Accelerations: None (Aminah Pérez RN) Decelerations: None (Aminah Pérez RN) Pitocin (milliunit): Pitocin Remains (milliunits) @ (Annotations: 4) (Aminah Pérez RN) Datetime: 06/21/2016 08:55 Communication Comments: blood glucose 72 (Aminah Pérez RN) Datetime: 06/21/2016 08:53 Bedside Blood Glucose: 72 (QS system process) Communication Comments: order received from [facility] for accucheck q4h (Aminah Pérez RN) LaborFlag: Antepartum (QS system process) Datetime: 06/21/2016 08:45 NBP Sys/Joanna/Mean (mmHg): 117 (QS system process) : 75 (QS system process) : 89 (QS system process) Pulse: 87 (QS system process) Monitor Mode: External; Palpation (Aminah Pérez RN) Frequency (min): 5 (Aminah Pérez RN) Quality: Mild (Aminah Pérez RN) Duration (sec): 50-80 (Aminah Pérez RN) Duration Criteria: Less than Two 120 Second Contractions (Aminah Pérez RN) Pattern: Normal: <= 5 Contractions in 10 Minutes (Aminah Pérez RN) Resting Tone (Palpate): Relaxed (Aminah Pérez RN) Monitor Mode: External US (Aminah Pérez RN) FHR Baseline Rate : 135 (Aminah Pérez RN) FHR Baseline Changes: No Baseline Change (Aminah Pérez RN) Variability: Moderate 6-25 bpm (Aminah Pérez RN) Accelerations: 15X15 (Aminah Pérez RN) Decelerations: None (Aminah Pérez RN) Pitocin (milliunit): Pitocin Increased to (milliunits) @ (Annotations: 4) (Aminah Pérez RN) LaborFlag: Antepartum (QS system process) Datetime: 06/21/2016 08:30 NBP Sys/Joanna/Mean (mmHg): 114 (QS system process) : 70 (QS system process) : 87 (QS system process) Pulse: 95 (QS system process) Monitor Mode: External; Palpation (Aminah Pérez RN) Frequency (min): 3.5-5 (Aminah Pérez RN) Quality: Mild (Aminah Pérez RN) Duration (sec): 60-100 (Aminah Pérez RN) Duration Criteria: Less than Two 120 Second Contractions (Aminah Pérez RN) Pattern: Normal: <= 5 Contractions in 10 Minutes (Aminah Pérez RN) Resting Tone (Palpate): Relaxed (Aminah Pérez RN) Monitor Mode: External US (Aminah Pérez RN) FHR Baseline Rate : 135 (Amianh Pérez RN) FHR Baseline Changes: No Baseline Change (Aminah Pérez RN) Variability: Moderate 6-25 bpm (Aminah Pérez, RN) Accelerations: 15X15 (Aminah Pérez, RN) Decelerations: None (Aminah Pérez, RN) Pitocin (milliunit): Pitocin Remains (milliunits) @ (Annotations: 2) (Aminah Pérez RN) LaborFlag: Antepartum (QS system process) Datetime: 06/21/2016 08:18 NBP Sys/Joanna/Mean (mmHg): 117 (QS system process) : 72 (QS system process) : 89 (QS system process) Pulse: 87 (QS system process) LaborFlag: Antepartum (QS system process) Datetime: 06/21/2016 08:16 Patient Position/Activity: Left Tilt (Aminah Pérez RN) Patient Position/Activity: Semi-Fowlers (Aminah Pérez RN) Datetime: 06/21/2016 08:15 Pitocin (milliunit): Pitocin Started (milliunits) @ (Annotations: 2) (Aminah Pérez RN) Datetime: 06/21/2016 08:13 I/O Interventions: Up to BR (Aminah Pérez RN) Datetime: 06/21/2016 08:02 Dilatation (cm): 3.0 (Aminah Pérez RN) Effacement (%): 70 (Aminah Pérez RN) Station: -1 (Aminah Pérez RN) Exam by: Elicia Golden CNM (Aminah Pérez RN) Membrane Status: Ruptured (Aminah Pérez RN) Membranes Rupture Method: Artificial (Aminah Pérez RN) Amniotic Fluid Color: Clear (Aminah Pérez, DORYS) Amniotic Fluid Amount: Small (Aminah Pérez, RN) Amniotic Fluid Odor: Normal (Aminah Pérez RN) Communication Comments: Order received from Elicia Golden CNM to start Pitocin 20 units in 1 L NS at 2 milliunits per minute. Increase by 2 milliunits per minute until a max of 20 milliunits per minute or until adequate labor is reached (Aminah Pérez RN) Datetime: 06/21/2016 08:00 Monitor Mode: External; Palpation (Aminah Pérez RN) Frequency (min): 7 (Aminah Pérez, DORYS) Quality: Mild (Aminah Pérez, DORYS) Duration Criteria: Less than Two 120 Second Contractions (Aminah Pérez, DORYS) Pattern: Normal: <= 5 Contractions in 10 Minutes (Aminah Pérez RN) Resting Tone (Palpate): Relaxed (Aminah Pérez, DORYS) Contraction Comments: irritability (Aminah Pérez, DORYS) Monitor Mode: External US (Aminah Pérez, DORYS) FHR Baseline Rate : 130 (Aminah Pérez RN) FHR Baseline Changes: No Baseline Change (Aminah Pérez, DORYS) Variability: Moderate 6-25 bpm (Aminah Pérez, RN) Accelerations: 15X15 (Aminah Pérez, RN) Decelerations: None (Aminah Pérez, DORYS) Datetime: 06/21/2016 07:52 Level of Consciousness: Fully Conscious (Aminah Pérez, RN) DTR's/Clonus: DTRs 2+; No Clonus (Aminah Pérez, RN) Headache: Denies (Aminah Pérez, RN) Breath Sounds, Left: Clear and Equal (Aminah Pérez, RN) Breath Sounds, Right: Clear and Equal (Aminah Pérez, RN) Nausea/Vomiting: Denies (Aminah Pérez, RN) RUQ Epigastric Pain: Denies (Aminah Pérez, RN) Datetime: 06/21/2016 07:30 Monitor Mode: External; Palpation (Aminah Pérez, RN) Frequency (min): 3-6 (Aminah Pérez, RN) Quality: Mild (Aminah Pérez, RN) Duration (sec): 70-100 (Aminah Pérez, RN) Duration Criteria: Less than Two 120 Second Contractions (Aminah Pérez, RN) Pattern: Normal: <= 5 Contractions in 10 Minutes (Aminah Pérez, RN) Resting Tone (Palpate): Relaxed (Aminah Pérez, RN) Monitor Mode: External US (Aminah Pérez, RN) FHR Baseline Rate : 135 (Aminah Pérez, RN) FHR Baseline Changes: No Baseline Change (Aminah Pérez, RN) Variability: Moderate 6-25 bpm (Aminah Pérez, RN) Accelerations: 15X15 (Aminah Pérez, RN) Decelerations: None (Aminah Pérez, RN) Datetime: 06/21/2016 07:00 Monitor Mode: External (Claribel Rogel RN) Frequency (min): occasional (Claribel Rogel, RN) Quality: Mild (Claribel Rogel, RN) Duration (sec): 90 (Claribel Rogel, RN) Pattern: Normal: <= 5 Contractions in 10 Minutes (Claribel Rogel RN) Resting Tone (Palpate): Relaxed (Claribel Rogel, RN) Monitor Mode: External US (Claribel Rogel, DORYS) FHR Baseline Rate : 135 (Claribel Rogel RN) FHR Baseline Changes: No Baseline Change (Claribel Rogel, RN) Variability: Moderate 6-25 bpm (Claribel Rogel, RN) Accelerations: 15X15 (Claribel Rogel, RN) Decelerations: None (Claribel Rogel, RN)
[2016-06-22] MEDS: IBUPROFEN 800 MG TABLET PO SCH ×3 (05:49→21:36)
--- NOTE | 2016-06-22 06:00 | L&D General Admission ---
General Admit Datetime Report Generated by CPN: 06/22/2016 06:00 INFORMATION Patient Age: 25 (08[birth year]28/2017 08:42:QS system process) EDC: 06/20/2016 00:00 (06/08/2016 09:27:Merari Johnson RN) : 4 (06/08/2016 09:27:Merari Johnson RN) Para: 2 (06/08/2016 09:27:Merari Johnson RN) Term: 2 (06/08/2016 09:27:Merari Johnson RN) : 0 (06/08/2016 09:27:Merari Johnson RN) Spontaneous Abortions: 1 (06/08/2016 09:27:Merari Johnson RN) Induced Abortions: 0 (06/08/2016 09:27:Merari Johnson RN) Livin (06/08/2016 09:27:Merari Johnson RN) Cesareans: 0 (06/08/2016 09:27:Merari Johnson RN) VBACs: 0 (06/08/2016 09:27:Merari Johnson RN) Ectopic: 0 (06/08/2016 09:27:Merari Johnson RN) Multiple Births: 0 (06/08/2016 09:27:Merari Johnson RN) Baby, Number in Womb: 1 (06/08/2016 09:27:Merari Johnson RN) CARE Primary Supervisor [employer]: [facility] (06/08/2016 09:27:Merari Johnson RN) Adequate Care: Yes (06/08/2016 09:27:Merari Johnson RN) Height (in): 62 (06/21/2016 15:51:QS system process) ALLERGIES Medication Allergy: No (06/08/2016 09:27:Merari Johnson RN) Medication Allergies: No Known Allergies (06/20/2016) (06/20/2016 18:54:QS system process) Latex Allergy: No Latex Allergies (06/08/2016 09:27:Merari Johnson RN) Food Allergies: none (06/08/2016 09:27:Merari Johnson RN) Environmental Allergies: none (06/08/2016 09:27:Merrai Johnson RN) COMMUNICATION Primary Language: Uruguayan (06/08/2016 09:27:Merari Johnson RN) Medical Tx Preferred Language: Uruguayan (06/08/2016 09:27:Merari Johnson RN) Communication Barrier(s): None (06/08/2016 09:27:Merari Johnson RN) DEMOGRAPHICS Address: [address] [place] [id number] (06/08/2016 09:23:QS system process) Zipcode: [address] (06/08/2016 09:23:QS system process) Home (08/29/2015 07:57:QS system process) Work (06/08/2016 09:23:QS system process) N: [id number] (08/28/2015 08:42:QS system process) Next of Kin Name: ROGER BARNETT (08/29/2015 07:57:QS system process) Next of Kin (08/29/2015 07:57:QS system process) Next of Kin Relationship: OR (08/28/2015 08:42:QS system process) Date of : 1990 (08/28/2015 08:42:QS system process) Marital Status: Single (08/28/2015 08:42:QS system process) Sex: Female (08/28/2015 08:42:QS system process) Race: (08/28/2015 08:42:QS system process) Ethnicity: Non- or (08/28/2015 08:42:QS system process) Scientologist: Other (08/28/2015 08:42:QS system process) DRUG AND ALCOHOL USE Alcohol: No (06/08/2016 09:27:Merari Johnson RN) Cigarettes: Never Smoker. [id number] (06/08/2016 09:27:Merari Johnson RN) Marijuana: No (06/08/2016 09:27:Merari Johnson RN) Cocaine: No (06/08/2016 09:27:Merari Johnson RN) Other Illicit Drugs: No (06/08/2016 09:27:Merari Johnson RN) VACCINE HISTORY Tetanus Vaccine: Yes (06/08/2016 09:27:Merari Johnson RN) Tdap Vaccine: Yes (06/08/2016 09:27:Merari Johnson RN) Track Laying Machine Operator: [facility] (06/08/2016 09:27:Merari Johnson RN) Feeding Preference: Breast (06/08/2016 09:27:Merari Johnson RN) Benefit of Breast Feed Discussed: Yes (06/08/2016 09:27:Merari Johnson RN) Circumcision: N/A (06/08/2016 09:27:Merari Johnson RN) Tubal Ligation: No (06/08/2016 09:27:Merari Johnson RN) Tubal Authorization Signed: N/A (06/08/2016 09:27:Merari Johnson RN) Consent: N/A (06/08/2016 09:27:Merari Johnson RN) Consent Signed: N/A (06/08/2016 09:27:Merari Johnson RN) Pain Management Plans: Epidural (06/08/2016 09:27:Merari Johnson RN) Support Person: Rony Chance (06/08/2016 09:27:Merari Johnson RN) Support Person Relationship: (06/08/2016 09:27:Merari Johnson RN) Cultural/Spritual Practice: No (06/08/2016 09:27:Merari Johnson RN) Spir/Cult Dietary Needs: No (06/08/2016 09:27:Merari Johnson RN) LIVING SITUATION/DISCHARGE PLAN Living Arrangements: House (06/08/2016 09:27:Merari Johnson RN) Adequate Access to:: Electric; Heat; Refrigeration; Plumbing/Running water; Phone; Transportation (06/08/2016 09:27:Merari Johnson RN) WIC Program: No (06/08/2016 09:27:Merari Johnson RN) Discharge Heel Stainer Person: Rony Chance (06/08/2016 09:27:Merari Johnson RN) Person to Help after Discharge: Rony Chance (06/08/2016 09:27:Merari Johnson RN) Currently Using Commun Resources: No (06/08/2016 09:27:Merari Johnson RN) Car Seat for Discharge: Yes (06/08/2016 09:27:Merari Johnson RN) Adoption Requested: No (06/08/2016 09:27:Merari Johnson RN) Pt Contact w/infant Post : N/A (06/08/2016 09:27:Merari Johnson RN) LABS Blood Type: A Positive (06/08/2016 09:27:Merari Johnson RN) Hemoglobin: 12.2 (06/20/2016 18:35:QS system process) Hematocrit: 35.4 L (06/20/2016 18:35:QS system process) MCV: 85 (06/20/2016 18:35:QS system process) Group Beta Strep: negative (06/08/2016 09:27:Merari Johnson RN) Gonorrhea: Negative (06/08/2016 09:27:Merari Johnson RN) Chlamydia: Negative (Annotations: Data stored by [facility] on behalf of user) (06/08/2016 09:27:Merari Johnson RN) RPR/VDRL: Nonreactive (06/08/2016 09:27:Merari Johnson RN) Hepatitis B: Negative (06/08/2016 09:27:Merari Johnson RN) Rubella: Immune (06/08/2016 09:27:Merari Johnson RN) OB/PREVIOUS HISTORY Previous Procedures: Ultrasound; NST (06/08/2016 09:27:Blossom Babb RN) Current Procedures: Ultrasound; NST (06/08/2016 09:27:Blossom Babb RN) History of Previous : No (06/08/2016 09:27:Blossom Babb RN) History of Gestational Diabetes: Yes (06/08/2016 09:27:Blossom Babb RN) History of PIH: No (06/08/2016 09:27:Blossom Babb RN) History of Incompetent Cervix: No (06/08/2016 09:27:Blossom Babb RN) History of Placenta Previa/Abrup: No (06/08/2016 09:27:Blossom Babb RN) History of Macrosomia: No (06/08/2016 09:27:Blossom Babb RN) History of IUGR: No (06/08/2016 09:27:Blossom aBbb RN) History of Hemorrhage: Yes (06/08/2016 09:27:Blossom Babb RN) History of Loss/Stillborn: No (06/08/2016 09:27:Blossom Babb RN) History of : No (06/08/2016 09:27:Blossom Babb RN) History of D (Rh) Sensitization: No (06/08/2016 09:27:Blossom Babb RN) History Recurrent Loss/Stillborn: No (06/08/2016 09:27:Blossom Babb RN) History Depression/PP Depression: No (06/08/2016 09:27:Blossom Babb RN) History of Uterine Anomaly/AMBAR: No (06/08/2016 09:27:Blossom Babb RN) History of Infertility: No (06/08/2016 09:27:Blossom Babb RN) History of ART Treatment: No (06/08/2016 09:27:Blossom Babb RN) History of AMBAR: No (06/08/2016 09:27:Blossom Babb RN) Comments Obstetrical History: G1: SAB 2006 G2: 2006, shoulder dystocia [id number] G3: 2011, hemorrhage G4: current, GDM (06/08/2016 09:27:Blossom Babb RN) MEDICAL HISTORY Med Hx Diabetes: Yes (06/08/2016 09:27:Blossom Babb, RN) Diabetes Type: Gestational Diabetes (06/08/2016 09:27:Blossom Babb, RN) Med Hx Hypertension: No (06/08/2016 09:27:Blossom Babb RN) Med Hx Heart Disease: No (06/08/2016 09:27:Blossom Babb RN) Med Hx Autoimmune Disorder: No (06/08/2016 09:27:Blossom Babb RN) Med Hx Kidney Disease/UTI: No (06/08/2016 09:27:Blossom Babb RN) Med Hx Neurologic/Epilepsy: No (06/08/2016 09:27:Blossom Babb RN) Med Hx Psychiatric Disorders: No (06/08/2016 09:27:Blossom Babb, RN) Med Hx Hepatitis/Liver Disease: No (06/08/2016 09:27:Blossom Babb RN) Med Hx Varicosities/Phlebitis: No (06/08/2016 09:27:Blossom Babb RN) Med Hx Thyroid Dysfunction: No (06/08/2016 09:27:Blossom Babb RN) Med Hx Trauma/Violence: No (06/08/2016 09:27:Blossom Babb RN) Med Hx Blood Transfusion: No (06/08/2016 09:27:Blossom Babb, RN) Med Hx Pulmonary (Asthma,TB): No (06/08/2016 09:27:Blossom Babb RN) Med Hx Breast: No (06/08/2016 09:27:Blossom Babb, RN) Med Hx LEGISLATIVE ASSISTANT Surgery: No (06/08/2016 09:27:Blossom Babb, RN) Med Hx Hospitalization/Surgery: Yes (06/08/2016 09:27:Blossom Babb, RN) Med Hx Anesthetic Complications: No (06/08/2016 09:27:Blossom Babb, RN) Med Hx Abnormal Pap Smear: Yes (06/08/2016 09:27:Blossom Babb, RN) Other Medical Diseases: No (06/08/2016 09:27:Blossom Babb, RN) Med Hx Significant Family Hx: No (06/08/2016 09:27:Blossom Babb, RN) Details of Med/Surg Hx: childbirth, gall bladder August 2015, D_C, abnl pap 2015 (06/08/2016 09:27:Blossom Babb RN) INFECTIOUS HISTORY Inf Hx Gonorrhea: No (06/08/2016 09:27:Blossom Babb RN) Inf Hx Chlamydia: Yes (06/08/2016 09:27:Blossom Babb RN) Inf Hx Syphilis: No (06/08/2016 09:27:Blossom Babb RN) Inf Hx HIV/AIDS: No (06/08/2016 09:27:Blossom Babb RN) Inf Hx Human Papilloma Virus: No (06/08/2016 09:27:Blossom Babb RN) Inf Hx Pt/Partner Genital Herpes: No (06/08/2016 09:27:Blossom Babb RN) Inf Hx Tuberculosis/Exposure: No (06/08/2016 09:27:Blossom Babb RN) Inf Hx Hepatitis B,C: No (06/08/2016 09:27:Blossom Babb RN) Inf Hx Rash or Viral Illness: No (06/08/2016 09:27:Blossom Babb RN) Details of Infectious Hx: Chlamydia 2012, treated (06/08/2016 09:27:Blossom Babb RN) GENETIC HISTORY Gen Hx Age >=35 at ASHELY: No (06/08/2016 09:27:Blossom Babb RN) Gen Hx Thalassemia: No (06/08/2016 09:27:Blossom Babb RN) Gen Hx Congenital Heart Defect: No (06/08/2016 09:27:Blossom Babb RN) Gen Hx Neural Tube Defect: No (06/08/2016 09:27:Blossom Babb RN) Gen Hx Down's Syndrome: No (06/08/2016 09:27:Blossom Babb RN) Gen Hx Daryl-Sachs: No (06/08/2016 09:27:Blossom Babb RN) Gen Hx Ronnie: No (06/08/2016 09:27:Blossom Babb RN) Gen Hx Familial Dysautonomia: No (06/08/2016 09:27:Blossom Babb RN) Gen Hx Sickle Cell Disease/Trait: No (06/08/2016 09:27:Blossom Babb RN) Gen Hx Hemophilia/Blood Disorder: No (06/08/2016 09:27:Blossom Babb RN) Gen Hx Muscular Dystrophy: No (06/08/2016 09:27:Blossom Babb RN) Gen Hx Cystic Fibrosis: No (06/08/2016 09:27:Blossom Babb RN) Gen Hx Huntingtons Chorea: No (06/08/2016 09:27:Blossom Babb RN) Gen Hx Mental Retardation/Autism: No (06/08/2016 09:27:Blossom Babb RN) Gen Hx Tested for Fragile X: No (06/08/2016 09:27:Blossom Babb RN) Gen Hx Other Inher/Chromosomal: No (06/08/2016 09:27:Blossom Babb RN) Gen Hx Maternal Metabolic DO: No (06/08/2016 09:27:Blossom Babb RN) Gen Hx Pt Father or FOB Defect: No (06/08/2016 09:27:Blossom Babb RN) Gen Hx Other Genetic History: No (06/08/2016 09:27:Blossom Babb RN) Gen Hx Drugs/Meds since LMP: Yes (06/08/2016 09:27:Blossom Babb RN) Gen Hx Medications: PNV, Tylenol (06/08/2016 09:27:Blossom Babb RN)
--- NOTE | 2016-06-22 06:00 | L&D Current Admission ---
Current Admit Datetime Report Generated by CPN: 06/22/2016 06:00 ADMISSION INFORMATION Current Admit Date/Time: 06/20/2016 18:22 (06/20/2016 18:22:Tani Sheppard RN) Reason for Admission: Induction of Labor (06/20/2016 18:22:Tani Sheppard RN) Chief Complaint: Scheduled Induction of Labor (06/20/2016 18:22:Tani Sheppard RN) EGA per Dates: 40.0 (06/20/2016 18:22:QS system process) Method of Arrival: Ambulatory (06/20/2016 18:22:Tani Sheppard RN) Admitted From: Home (06/20/2016 18:22:Tani Sheppard RN) Reason for Induction: Other (06/20/2016 18:22:Tani Sheppard RN) Reason for Induction- Other: Gestational Diabetes (06/20/2016 18:22:Tani Sheppard RN) Records Available: Yes (06/20/2016 18:22:Tani Sheppard RN) General Admission Information: Reviewed; Updated; Confirmed (06/20/2016 18:22:Tani Sheppard RN) General Admission Reviewed By: Magy Ovalle RN (06/20/2016 18:22:Tani Sheppard RN) BELONGINGS/ADVANCED DIRECTIVES Other Belongings: See pt belongings form filled out by patient (06/20/2016 18:22:Tani Sheppard RN) Disposition of Belongings: Kept with Patient (06/20/2016 18:22:Tani Sheppard RN) Advance Direct for Healthcare: No, and Wants No Information (06/20/2016 18:22:Tani Sheppard RN) Durable Power of Regulatory Compliance Director: No (06/20/2016 18:22:Tani Sheppard RN) Living Will: No (06/20/2016 18:22:Tani Sheppard RN) Organ Donor: No (06/20/2016 18:22:Tani Sheppard RN) Pt Rights Information Given: Yes (06/20/2016 18:22:Tani Sheppard RN) Pt Understands Pt Rights: Yes (06/20/2016 18:22:Tani Sheppard RN) LEARNING ASSESSMENT Knowledge Level: Understands L_D Process (06/20/2016 18:22:Tani Sheppard RN) Barriers to Learning: None (06/20/2016 18:22:Tani Sheppard RN) Learning Readiness: Motivated (06/20/2016 18:Romelia:Tani Sheppard RN) Learns Best By: 1 to 1 Instruction (06/20/2016 18:Romelia:Tani Sheppard RN) Learning Needs: Labor and Delivery Process; Pain Management; Symptoms to Report (06/20/2016 18:Romelia:Tani Sheppard RN) DOMESTIC VIOLANCE SCREENING Dom Viol Threatened/Hurt: No (06/20/2016 18:22:Tani Sheppard RN) Hx of Abuse/Neglect past 2yrs: No (06/20/2016 18:22:Tani Sheppard RN) Feel Unsafe Going Home: No (06/20/2016 18:22:Tani Sheppard RN) Addt'l Observ Indicating Abuse: No (06/20/2016 18:Romelia:Tani Sheppard RN) Reason Unable to Complete Screen: N/A, Screen Completed (06/20/2016 18:Romelia:Tani Sheppard RN) Considered Personal Harm/Suicide: No (06/20/2016 18:Romelia:Tani Sheppard RN) NUTRITIONAL/FUNCTIONAL SCREENING Problem with Appetite >5 Days: No (06/20/2016 18:22:Tani Sheppard RN) Chew/Swallow Difficulties: No (06/20/2016 18:22:Tani Sheppard RN) Inappropriate Wt Gain/Loss: No (06/20/2016 18:22:Tani Sheppard RN) Presence Skin Breakdown/Ulcer: No (06/20/2016 18:22:Tani Sheppard RN) Special Diet: No (06/20/2016 18:22:Tani Sheppard RN) Pt Requests Yard Switch Operator Visit: No (06/20/2016 18:22:Tani Sheppard RN) Hx of Any of the Following?: N/A (06/20/2016 18:22:Tani Sheppard RN) New Diagnosis of: N/A (06/20/2016 18:22:Tani Sheppard RN) Requires Assist w/Ambulation: No (06/20/2016 18:22:Tani Sheppard RN) Uses Assist Device to Ambulate: No (06/20/2016 18:22:Tani Sheppard RN) Pt Requires Help w/ADL's: No (06/20/2016 18:22:Tani Sheppard RN)
--- NOTE | 2016-06-22 06:15 | L&D Care Plan ---
LD CARE PLANS Datetime Report Generated by CPN: 06/22/2016 06:15 Datetime: 06/20/2016 18:20 Pain State: Risk For (Tani Sheppard RN) Related To: Labor and Delivery Process; Post (Tani Sheppard RN) Goal(s): Patients Pain will be Assessed and Managed; Patient will Verbalize Adequate Relief of Pain or the Ability to [place] with Current Pain (Tani Sheppard RN) Interventions: Assess Pain Severity on Scale of 0 (None) to 5 (Severe); Assess Type, Location and Intensity of Pain Each Time Client Reports Discomfort and Notify Provider if Unusal Pain Develops; Encourage Proper Breathing and Relaxation Techniques; Offer Alternatives Such as Repositioning, Calm Environment, Massages, Diversional Activities, Ice Pack, Splinting, and Ambulation; Administer Analgesics as Ordered; Assist with Epidural Placement as Appropriate; Evaluate Therapeutic Effectiveness of Medication and Treatments (Tani Sheppard RN) Outcome: Patient will Report Absence or Relief of Pain Consistent with Established Pain Goal (Tani Sheppard RN) Status: Ongoing (Tani Sheppard RN) Outcome: Patient will have a Decrease in Signs and Symptoms of Discomfort (Tani Sheppard RN) Status: Ongoing (Tani Sheppard RN) Outcome: Pain will be Controlled During Procedures (Tani Sheppard RN) Status: Ongoing (Tani Sheppard RN) Anxiety State: Risk For (Tani Sheppard RN) Related To: Labor and Delivery Process; Significant Life Event (Tani Sheppard RN) Goal(s): Patient will have Decreased Anxiety and be able to Function at Acceptable Levels (Tani Sheppard RN) Interventions: Assess Verbal and Nonverbal Behavioral Indicators of Anxiety; Assist Patient to Identify and Verbalize Symptoms of Anxiety; Identify and Demonstrate Techniques to Control Anxiety; Assist Patient with Coping Mechanisms to Manage Anxiety; Explain to Patient, Using a Calm Reassuring Approach and Nonmedical Terms, All Activities, Procedures, and Concerns; Instruct Patient and Family about Post Discharge Care, Limitations, Symptoms to Report and Resources Available (Tani Sheppard RN) Outcome: Patient will Identify, Verbalize and Demonstrate Techniques to Control Anxiety (Tani Sheppard RN) Status: Ongoing (Tani Sheppard RN) Outcome: Patient's Posture, Facial Expressions, Gestures and Activity Level will Reflect Decreased Anxiety (Tain Sheppard RN) Status: Ongoing (Tani Sheppard RN) Outcome: Patient will Verbalize a Sense of Control and/or Acceptance of the Situation (Tani Sheppard RN) Status: Ongoing (Tani Sheppard RN) Outcome: Patient will Identify and Utilize Support Person (Tani Sheppard RN) Status: Ongoing (Tani Sheppard RN) Knowledge Deficit State: Risk For (Tani Sheppard RN) Related To: Labor and Delivery Process (Tani Sheppard RN) Goal(s): Patient will Accurately Verbalize Understanding of Plan of Care and Treatment; Patient and Family will Accurately Verbalize Understanding of the Disease Process (Tani Sheppard RN) Interventions: Assess Motivation and Willingness of Patient/Family to Learn; Assess Preferred Learning Mode: One to One Instruction, Reading, Videos, Group Discussion or Demonstration; Assess Barriers to Learning: Pain, Emotional State, Language Barrier, Cognitive Impairment, Visual or Hearing Deficits; Assess Patient and Family Knowledge of Disease Process, Medications and Treatment; Discuss Therapy and/or Treatment Options, Describe Rationale Behind Management, Therapy and Treatment Recommendations; Instruct Patient and Family on Signs and Symptoms to Report; Instruct Patient and Family on Medication Effects and Side Effects; Provide Appropriate and Timely Education Using Multiple Techniques; Provide Patient and Family with Support Group Information and Resources; Give Clear and Thorough Explanations and Demonstrations (Tani Sheppard RN) Outcome: Patient and Family will Verbalize Understanding of Condition, Treatment and Signs and Symptoms to Report (Tani Sheppard RN) Status: Ongoing (Tani Sheppard RN) Outcome: Patient will Identify Perceived Learning Needs and Express Motivation to Learn (Tani Sheppard RN) Status: Ongoing (Tani Sheppard RN) Outcome: Patient will Verbalize Understanding of Desired Content, and/or Performs Desired Skill Prior to Discharge (Tani Sheppard RN) Status: Ongoing (Tani Sheppard RN) Infection State: Risk For (Tani Sheppard RN) Related To: Invasive Procedures (Tani Sheppard RN) Goal(s): The Patient will be Free of Infection, Vital Signs Stable and Lab Work within Normal Parameters (Tani Sheppard RN) Interventions: Instruct and Reinforce Proper Handwashing, Hygiene, and Care Techniques to Patient and Family; Monitor Vital Signs; Monitor Patient for the Following Signs of Infection: Fever, Abdominal Tenderness, Unusual Discharge; Monitor Aminiotic Fluid, Urine and Lochia for Color and Odor; Observe Wounds, Incisions and Invasive Line Sites for Redness, Drainage and Edema; Assess IV Sites per Hospital Policy; Monitor Lab and Test Results and Notify Provider of Abnormal Findings; Assess Nutritional Status and Promote Good Nutrition (Tani Sheppard RN) Outcome: Patient will Remain Free of Infection (Tani Sheppard RN) Status: Ongoing (Tani Sheppard RN) Outcome: Infection will be Recognized Early to Allow for Prompt Treatment (Tani Sheppard RN) Status: Ongoing (Tani Sheppard RN) Outcome: Patient will have Vital Signs Within Expected Range (Tani Sheppard RN) Status: Ongoing (Tani Sheppard RN) Injury State: Risk For (Tani Sheppard RN) Related To: Labor and Delivery Process (Tani Sheppard RN) Goal(s): Patient will Remain Free from Injury (Tani Sheppard RN) Interventions: Monitoring as per Hospital Protocol; Assess Neurological Status; Perform Risk Assessment of Patients with Induction and ; Perform Fall Risk Assessment and Prevention per Hospital Protocol; Perform DVT Risk Assessment and Prophylaxis per Hospital Protocol; Ensure that Oxygen, Suction, and Resuscitation Medications and Equipment are Readily Available; Confirm Patient ID Prior to Procedure(s) and Medication Administration per Hospital Policy (Tani Sheppard RN) Outcome: Successful Fall Risk Prevention (Tani Sheppard RN) Status: Ongoing (Tani Sheppard RN) Outcome: Patient will Deliver without Adverse [place] (Tani Sheppard RN) Status: Ongoing (Tani Sheppard RN) Outcome: Patient's Neurological Status will Remain Stable (Tani Sheppard RN) Status: Ongoing (Tani Sheppard RN) Impaired Skin Integrity State: Risk For (Tani Sheppard RN) Related To: Vaginal Delivery; Invasive Procedures (Tani Sheppard RN) Goal(s): Patient will Maintain Optimal Skin Integrity, Free of Breakdown, Injury or Infection (Tani Sheppard RN) Interventions: Complete Screening for Pressure Ulcer Risk and Initiate Protocol per Hospital Policy; Monitor Site of Skin Impairment for Color Changes, Redness, Swelling, Warmth, Pain or Other Signs of Infection; Encourage and Assist with Position Changes; Monitor Patient's Mobility Status; Provide Adequate Nutrition and Fluids; Teach Patient Appropriate Hygienic Care; Teach Patient/Family Skin Care Management (Tani Sheppard RN) Outcome: Patient will not have Evidence of Injury Such as Skin Breakdown, Scrapes, Cuts, or Bruising (Tani Sheppard RN) Status: Ongoing (Tani Sheppard RN) Outcome: Patient will Report Any Altered Sensation or Pain at Site of Skin Impairment (Tani Sheppard RN) Status: Ongoing (Tani Sheppard RN) Outcome: Patients Incisions and Wounds will be without Signs or Symptoms of Infection (Tani Sheppard RN) Status: Ongoing (Tani Sheppard RN) Outcome: Patient will Demonstrate Understanding of Plan to Heal Skin and Prevent Reinjury and Verbalize Risk Factors (Tani Sheppard RN) Status: Ongoing (Tani Sheppard RN)
[2016-06-22 07:25] LABS: HEMATOCRIT 32.4 % (36.0-47.0); HEMOGLOBIN 10.9 g/dL (12.0-15.5); HGB HCT DIFFERENCE 0.3; MEAN CORPUSCULAR HGB CONC 33.8 g/dL (32.0-36.0); MEAN CORPUSCULAR VOLUME 86 fl (80-97); RED BLOOD COUNT 3.78 10^6/uL (3.72-5.28); RED CELL DISTRIBUTION WIDTH 14.2 % (11.5-14.0); WHITE BLOOD COUNT 11.8 10^3/uL (4.0-10.5)
--- NOTE | 2016-06-22 08:41 | PDOC PROGRESS REPORT ---
Subjective-OB Subjective: Post Delivery Day: 1 26 year old. Denies any needs at this time, states lochia is stable, voiding without difficulty, pain well controlled. Physical Exam (OB) Vital Signs: Temp Pulse Resp BP Pulse Ox 98.3 F 89 18 114/64 97 06/21/16 19:26 06/21/16 19:26 06/21/16 19:26 06/21/16 19:26 06/21/16 19:26 Intake & Output 06/21/16 06/22/16 06/23/16 06:59 06:59 06:59 Weight 81.193 kg - Lochia Lochia Amount: Small 10-25 ml Lochia Color: Rubra/Red - Abdomen Description: Soft, Round Hernia Present: No Fundal Description: Firm, Midline Fundal Height: u/u - u/2 Objective-Diagnostic Laboratory: 06/22/16 07:09 06/22/16 07:09 WBC 11.8 H RBC 3.78 Hgb 10.9 L Hct 32.4 L MCV 86 MCH 29.0 MCHC 33.8 RDW 14.2 H Plt Count 201 Assessment and Plan(PN) - Assessment and Plan (1) Vaginal delivery Is this a current diagnosis for this admission?: YesPlan: routine pp care (2) Acute blood loss anemia Is this a current diagnosis for this admission?: YesPlan: ferrous sulfate increase dietary iron - Time Spent with Patient Time with patient: Less than 15 minutes Critical Time spent with patient: Less than 15 minutes Medications reviewed and adjusted accordingly: Yes - Disposition Anticipated Discharge: Home Within: within 24 hours
[2016-06-22] MEDS: DOCUSATE SODIUM 100 MG CAPSULE PO SCH ×2 (09:39→17:20)
[2016-06-22] MEDS: FERROUS SULFATE 325 MG TABLET PO SCH ×2 (09:39→17:20)
[2016-06-22] MEDS: PRENATAL VITAMIN W-O CA NO5/FE FUMARATE/FA CAPSULE PO SCH (09:39)
[2016-06-22] MEDS: SENNOSIDES/DOCUSATE 8.6-50 MG 1 EACH TABLET PO SCH (09:39)
[2016-06-23] MEDS: IBUPROFEN 800 MG TABLET PO SCH (06:00)
[2016-06-23 08:00] VITALS: BP 107/65
--- NOTE | 2016-06-23 08:54 | PDOC DISCHARGE SUMMARY ---
Final Diagnosis Discharge Date: 06/23/16 - Final Diagnosis (1) Vaginal delivery Is this a current diagnosis for this admission?: Yes (2) Acute blood loss anemia Is this a current diagnosis for this admission?: Yes Discharge Data - Discharge Medication Home Medications: Pnv #116/Iron Fumarate/FA/Dha [Expecta Combo Pack] 1 tab PO DAILY 06/08 Docusate Sodium [Colace 100 mg Capsule] 100 mg PO BID #60 capsule 06/23/16 Ferrous Sulfate [Feosol 325 mg Tablet] 325 mg PO BID #60 tablet 06/23/16 Ibuprofen [Motrin 800 mg Tablet] 800 mg PO Q8 #60 tablet 06/23/16 Gestational Age: 40.1 Reason(s) for Admission: Induction of Labor, Gestional Diabetes Procedures: NST Intrapartum Procedure(s): Spontaneous Vaginal Delivery - [place] Data Baby 1 Female at 1 minute: 8 at 5 minutes: 9 Home with Mother: Yes Complications: No - Diagnosis Test Laboratory: Temp Pulse Resp BP Pulse Ox 97.5 F 91 17 107/65 99 06/23/16 07:34 06/23/16 07:34 06/23/16 07:34 06/23/16 07:34 06/23/16 07:34 06/20/16 06/20/16 06/22/16 18:30 18:35 07:09 RBC 4.16 3.78 Hgb 12.2 10.9 L Hct 35.4 L 32.4 L Urine Opiates Screen NEGATIVE - Discharge information/Instructions Discharge Activity: Activity As Tolerated, Slowly Increase Activity, No tub bath Discharge Diet: Regular Disposition: HOME, SELF-CARE Follow up with: [facility] in: 4, Weeks
[2016-06-23] MEDS: DOCUSATE SODIUM 100 MG CAPSULE PO SCH (09:59)
[2016-06-23] MEDS: PRENATAL VITAMIN W-O CA NO5/FE FUMARATE/FA CAPSULE PO SCH (10:00)
[2016-06-23] MEDS: FERROUS SULFATE 325 MG TABLET PO SCH (10:00)
[2016-06-23] MEDS: SENNOSIDES/DOCUSATE 8.6-50 MG 1 EACH TABLET PO SCH (10:00)
== END 2016-06-23 12:32 | disposition home or self-care (01) | DRG 775 ==
LOC: LR 18:00 → 2S 06-21 15:50
PROVIDERS: ADMIT Obstetrics & Gynecology; ATTEND Obstetrics & Gynecology
PROC: 10E0XZZ Delivery of Products of Conception, External Approach (ICD-10-PCS; principal; 2016-06-21)
PROC: 10907ZC Drainage of Amniotic Fluid, Therapeutic from Products of Conception, Via Natural or Artificial Opening (ICD-10-PCS; 2016-06-21)
PROC: 3E0P7GC Introduction of Other Therapeutic Substance into Female Reproductive, Via Natural or Artificial Opening (ICD-10-PCS; 2016-06-21)
PROC: 3E033VJ Introduction of Other Hormone into Peripheral Vein, Percutaneous Approach (ICD-10-PCS; 2016-06-21)
DX: O13.4 Gestational [pregnancy-induced] hypertension without significant proteinuria, complicating childbirth (principal); D62 Acute posthemorrhagic anemia; O24.429 Gestational diabetes mellitus in childbirth, unspecified control; O48.0 Post-term pregnancy; O69.2XX0 Labor and delivery complicated by other cord entanglement, with compression, not applicable or unspecified; O99.02 Anemia complicating childbirth; Z3A.40 40 weeks gestation of pregnancy; Z37.0 Single live birth
CPT/HCPCS: 36415; 80307; 81005; 82962; 85025; 85027; 86592; 86850; 86900; 86901; J2370; J2590; J3010; J3490